=== PATIENT | female | born 1960 | race Caucasian/White ===

== ENCOUNTER 2016-02-18 10:06 | Outpatient (RCR) | payer BC ==
[~2016-02-18] VITALS: Ht 165.1 cm; Wt 112.5 kg
[~2016-02-18 10:06] MED LIST: ALPR0.5T PO; ALPR1TAB7 PO; ASCO-262 PO; ASPI-983 PO; COLE1TAB PO; CYCL10TA9 PO; DICL100G18 TP; ESTROGEN PATCH; FURO40TA4 PO; METF1000 PO; OLME20TA22 PO; PANT40TA3 PO; POTA10TA10 PO; POTA20TA15 PO; PRCD5U PO; PRED10TA PO; PROM25TA14 PO; PSYL1PAC10 PO; TRAM50TA2 PO
--- OUTSIDE RECORDS SUMMARY | 2016-02-18 10:09 | XMS REPORT | Continuity of Care Document ---
Author Author [facility] Organization [facility] Address Unknown Phone Unavailable Care Team Providers Care Molecular Pathologist Name Role Phone SHELDON RAPP DO PCP Insurance Providers Payer Name Policy Number Subscriber Name Relationship [facility] [id number] Suzette Chow 20 Self / Same As Patient Advance Directives Directive Response Recorded Date/Time Advance Directives No 02/14/14 5:29pm Organ Donor Yes 02/14/14 5:29pm Problems Medical Problems Problem Onset Date Status Bronchitis Unknown Active Medications Medication Dose Route Sig Days/Qty Instructions Order Date Discontinued Date Status Alprazolam 0.5 Mg PO NEEDED 02/14/14 Active [Estrogen Patch] WEEKLY 02/14/14 Active Promethazine/Codeine 5-10 Ml PO EVERY 6 HOURS PRN COUGH 120 Qty Active Prednisone 40 Mg PO DAILY 2 Days 02/14/14 Active Social History Social History Problem Response Recorded Date/Time Alcohol Use Denies Use 02/14/2014 5:29pm Recreational Drug Use No 02/14/2014 5:29pm Recent Foreign Travel No 04/16/2014 2:15pm Hospital Discharge Instructions No hospital discharge instructions. Plan of Care No plan of care. Functional Status No functional status results. Allergies, Adverse Reactions, Alerts Allergen Type Severity Reaction Status Last Updated No Allergy Information Available Active 12/28/13 Immunizations No immunization records. Vital Signs No known vital signs results. Results No known relevant diagnostic tests, laboratory data and/or discharge summary. Procedures No known history of procedures. Encounters Encounter Location Date/Time Discharged Recurring [facility] 04/23/14 10:19am
== END 2016-05-18 | disposition home or self-care (01) ==
LOC: DSME 10:06
PROVIDERS: ATTEND Internal Medicine
DX: E11.9 Type 2 diabetes mellitus without complications (principal); I10 Essential (primary) hypertension

== ENCOUNTER → 2017-03-21 | Outpatient (CLI) | payer BC ==
--- NOTE | 2017-03-21 15:59 | Diagnostic Imaging Report ---
INDICATION: Routine screening. COMPARISON: 02/18/2016 and 01/01/2015. TECHNIQUE: Screening digital mammography was performed bilaterally with a Computer Aided Detection (CAD) system. FINDINGS: Scattered fibroglandular densities are identified in both breasts. A biopsy clip in the outer left breast is again noted. No mass or malignant appearing microcalcifications are seen. The axillae are unremarkable. IMPRESSION: No mammographic features suspicious for malignancy are identified. ACR BI-RADS Category 2: Benign findings. Result letter will be mailed to the patient. Note: At least 10% of breast cancer is not imaged by mammography. Dictated by: Dictated on workstation # [id number]
== END ==
LOC: RAD 15:02
PROVIDERS: ATTEND Nurse Practitioner
DX: Z12.31 Encounter for screening mammogram for malignant neoplasm of breast (principal)
CPT/HCPCS: 77067

== ENCOUNTER 2017-10-25 16:02 | Emergency (ER) | payer BC ==
[~2017-10-25] VITALS: Ht 162.6 cm; Wt 98.4 kg
[~2017-10-25 16:02] MED LIST changes: +METF-399 PO; -METF1000 PO; +OLME20TA21 PO; -OLME20TA22 PO
[2017-10-25] MEDS ORDERED: ASPIRIN 325 MG (5 GR) TABLET PO ONE (16:15)
--- NOTE | 2017-10-25 16:17 | ED Chest Pain ---
General Stated Complaint: CP Source: patient Exam Limitations: no limitations History of Present Illness Date Seen by Provider: Oct 25, 2017 Time Seen by Provider: 16:12 Initial Comments Patient is a 57-year-old female who presents to the emergency room with complaints of substernal chest pain that radiates to her left shoulder that started 3 hours prior to arrival. She reports when the pain started she took two 81 mg aspirin. She reports the pain has not let up and she has developed lightheadedness, dizziness, and shortness of breath. She's has had a similar episode 2 years ago and has seen Dr. Kulkarni in the past. 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) Associated Symptoms: dizziness, shortness of breath Allergies and Home Medications Allergies Coded Allergies: sulfamethoxazole (Verified Allergy, Severe, 02/03/16) trimethoprim (Verified Allergy, Severe, 02/03/16) Home Medications Alprazolam 1 Mg Tablet, 1 MG PO HS, (Reported) Ascorbate Calcium 500 Mg Tablet, 500 MG PO BID, (Reported) Aspirin 81 Mg Tablet.dr, 81 MG PO HS, (Reported) Colestipol HCl 1 Gm Tablet, 1 GM PO HS, (Reported) Cyclobenzaprine HCl 10 Mg Tablet, 10 MG PO Q8H PRN for MUSCLE SPASMS, (Reported) Diclofenac Sodium 100 Gm Gel..gram., TP DAILY PRN PRN for PAIN, (Reported) Furosemide 40 Mg Tablet, 40 MG PO BID, (Reported) Metformin HCl 1,000 Mg Tablet, 1,000 MG PO BID, (Reported) Olmesartan Medoxomil 20 Mg Tablet, 20 MG PO DAILY, (Reported) Pantoprazole Sodium 40 Mg Tablet.dr, 40 MG PO DAILY, (Reported) Potassium Chloride 10 Meq Tablet.er, 10 MEQ PO BID, (Reported) Promethazine HCl 25 Mg Tablet, 25 MG PO Q8H PRN for NAUSEA/VOMITING, (Reported) Psyllium Husk (with Sugar) 3.4 Gm Powd.pack, 3.4 GM PO HS, (Reported) Tramadol HCl 50 Mg Tablet, 50-100 MG PO Q8H PRN for PAIN, (Reported) Patient Home Medication List Home Medication List Reviewed: Yes Review of Systems Review of Systems Constitutional: see HPI; No chills, No fever Respiratory: See HPI, Shortness of Air Cardiovascular: See HPI, Chest Pain, Lightheadedness All Other Systems Reviewed Negative Unless Noted: Yes Past Ahzqxpm-Lpuadf-Fkhttd Hx Past Med/Social Hx: Reviewed Nursing Past Med/Soc Hx Patient Social History Recent Foreign Travel: No Contact w/Someone Who Travel: No Recent Hopitalizations: No Immunizations Up To Date Tetanus Booster (TDap): More than 5yrs Date of Pneumonia Vaccine: June 22, 2015 Seasonal Allergies Seasonal Allergies: No Past Medical History Appendectomy, Gallbladder, Hysterectomy, Orthopedic, Tonsillectomy Sleep Apnea Currently Using CPAP: Yes High Cholesterol, Hypertension Reproductive Disorders: No 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 8.0oz. 115.650263ye; 41.26 BMI Method:Stated General Appearance: No Apparent Distress, WD/WN HEENT: PERRL/EOMI, TMs Normal, Normal ENT Inspection, Pharynx Normal Neck: Full Range of Motion, Normal Inspection, Non Tender Respiratory: Chest Non Tender, Lungs Clear, Normal Breath Sounds, No Accessory Muscle Use, No Respiratory Distress Cardiovascular: No Edema, No Gallop, No JVD, No Murmur, Normal Peripheral Pulses, Tachycardia Extremity: Normal Capillary Refill, Normal Inspection, Normal Range of Motion, Non Tender, No Calf Tenderness, No Pedal Edema Neurologic/Psychiatric: Alert, Oriented x3, Normal Mood/Affect Skin: Normal Color, Warm/Dry Progress/Results/Core Measures Results/Orders Lab Results Laboratory Tests Test 10/25/17 16:17 Range/Units White Blood Count 7.8 4.3-11.0 10^3/uL Red Blood Count 4.03 L 4.35-5.85 10^6/uL Hemoglobin 11.9 11.5-16.0 G/DL Hematocrit 35 35-52 % Mean Corpuscular Volume 87 80-99 FL Mean Corpuscular Hemoglobin 30 25-34 PG Mean Corpuscular Hemoglobin Concent 34 32-36 G/DL Red Cell Distribution Width 14.5 10.0-14.5 % Platelet Count 292 130-400 10^3/uL Mean Platelet Volume 9.7 7.4-10.4 FL Neutrophils (%) (Auto) 65 42-75 % Lymphocytes (%) (Auto) 24 12-44 % Monocytes (%) (Auto) 9 0-12 % Eosinophils (%) (Auto) 2 0-10 % Basophils (%) (Auto) 0 0-10 % Neutrophils # (Auto) 5.1 1.8-7.8 X 10^3 Lymphocytes # (Auto) 1.8 1.0-4.0 X 10^3 Monocytes # (Auto) 0.7 0.0-1.0 X 10^3 Eosinophils # (Auto) 0.1 0.0-0.3 10^3/uL Basophils # (Auto) 0.0 0.0-0.1 10^3/uL Prothrombin Time 11.8 L 12.2-14.7 SEC INR Comment 0.9 0.8-1.4 Activated Partial Thromboplast Time 24 24-35 SEC D-Dimer 0.33 0.00-0.49 UG/ML Sodium Level 140 135-145 MMOL/L Potassium Level 3.4 L 3.6-5.0 MMOL/L Chloride Level 103 98-107 MMOL/L Carbon Dioxide Level 27 21-32 MMOL/L Anion Gap 10 5-14 MMOL/L Blood Urea Nitrogen 14 7-18 MG/DL Creatinine 0.81 0.60-1.30 MG/DL Estimat Glomerular Filtration Rate > 60 BUN/Creatinine Ratio 17 Glucose Level 108 H 70-105 MG/DL Calcium Level 9.9 8.5-10.1 MG/DL Corrected Calcium 9.7 8.5-10.1 MG/DL Magnesium Level 2.0 1.8-2.4 MG/DL Total Bilirubin 0.8 0.1-1.0 MG/DL Aspartate Amino Transf (AST/SGOT) 20 5-34 U/L Alanine Aminotransferase (ALT/SGPT) 26 0-55 U/L Alkaline Phosphatase 76 40-136 U/L Myoglobin 22.4 10.0-92.0 NG/ML Troponin I < 0.30 <0.30 NG/ML B-Type Natriuretic Peptide 14.1 <100.0 PG/ML Total Protein 6.8 6.4-8.2 GM/DL Albumin 4.3 3.2-4.5 GM/DL Amylase Level 49 25-125 U/L Lipase 29 8-78 U/L My Orders Orders - NEHA GARCIAS Cbc With Automated Diff (10/25/17 16:10) Magnesium (10/25/17 16:10) Chest 1 View, Ap/Pa Only (10/25/17 16:10) Ekg Tracing (10/25/17 16:10) Cardiac Profile 1 (10/25/17 16:10) Comprehensive Metabolic Panel (10/25/17 16:10) Myoglobin Serum (10/25/17 16:10) Protime With Inr (10/25/17 16:10) Partial Thromboplastin Time (10/25/17 16:10) O2 (10/25/17 16:10) Monitor-Rhythm Ecg Trace Only (10/25/17 16:10) Aspirin Tablet (Aspirin Tablet) (10/25/17 16:15) Nitroglycerin 0.4 Mg Btl 25's (Nitrostat (10/25/17 16:15) Saline Lock/Iv-Start (10/25/17 16:10) Lipase (10/25/17 16:10) Amylase (10/25/17 16:10) BNP (10/25/17 16:10) Fibrin Degradation Products (10/25/17 16:10) Medications Given in ED Vital Signs/I&O 10/25/17 10/25/17 16:02 17:30 Temp 98.4 Pulse 96 104 Resp 18 18 B/P (MAP) 134/75 (94) 123/72 Pulse Ox 99 O2 Delivery Room Air Room Air Progress Progress Note : Time: 14:40 Progress Note The patient's pain went from a 9 down to a 3 after 2 nitroglycerin. I am holding off on her third nitroglycerin because her blood pressure was down into the low 100 systolic and to bottom her out. 1727: I went back in the patient's room she states her pain is completely resolved at this time. I informed her that I would like to admit her to the hospital for chest pain rule out that she can see a trader and have more blood work done. She states that she has a at home who has dementia and that she cannot stay in the hospital. I informed like to admit her to the hospital and if she does not think she will be signing out AGAINST MEDICAL ADVICE. She agrees to this I informed her of the benefits of staying in the risks of going home. She is still adamant that she will not be staying in the hospital. EKG : EKG Time: 16:03 Rate: 110 Rhythm: S.Tach Intervals: Normal ECG Comparisson: No Previous ECG Available ECG Impression: Normal Comment Review by Dr. Waterman and he agrees with above. Diagnostic Imaging Diagonstic Imaging: Xray Plain Films/CT/US/NM/MRI: chest Comments NAME: SUZETTE CHOW [facility] REC#: [id number] PHYSICIAN: NEHA GARCIAS CC: NEHA GARCIAS; MILA GRIER MD Page 1 of 1 RADIOLOGY REPORT VIA [place], [place] CC: NEHA GARCIAS; MILA GRIER MD Page 1 of 1 RADIOLOGY REPORT NAME: SUZETTE CHOW [facility] REC#: [id number] PT STATUS: DEP ER : 1960 PHYSICIAN: NEHA GARCIAS ADMIT DATE: 10/25/17/ER Signed Date of Exam: 10/25/17 CHEST 1 VIEW, AP/PA ONLY INDICATION: Chest pain. TIME OF EXAM: 04:33 p.m. Correlation is made with prior study from 02/05/2016. FINDINGS: Heart size is stable. The lungs are clear. No infiltrate or failure is identified. No effusion or pneumothorax is seen. There are postsurgical changes in the lower cervical spine. IMPRESSION: No acute cardiopulmonary process is detected. Dictated by: Dictated on workstation # [id number] Dict: 10/25/17 1649 Trans: 10/25/171911 Interpreted by: MILA GRIER MD Electronically signed by: MILA GRIER MD 10/25/171911 Reviewed: Reviewed by Me Departure Impression Primary Impression: Chest pain Additional Impression: Left against medical advice Disposition: 01 HOME, SELF-CARE Condition: Against Medical Advice Departure-Patient Inst. Decision time for Depature: 17:29 Referrals: KRISTEN PAREDES DO (PCP/Family) Primary Care Physician Patient Instructions: Chest Pain (DC) Add. Discharge Instructions: Follow-up with your trader tomorrow. Call first thing in the morning. Follow-up with your primary care provider tomorrow. Call first thing tomorrow morning. I believe you need to be admitted to the hospital. Return back to the emergency room for any chest pain, shortness of breath, worsening symptoms, or any other concerns as needed. NEHA GARCIAS Oct 25, 2017 16:17
[2017-10-25] MEDS: NITROGLYCERIN 0.4 MG SL TABS BTL 25'S SL PRN ×2 (16:22→16:29)
[2017-10-25 16:27] LABS: BASOPHILS % (AUTO) 0 % (0-10); EOSINOPHILS # (AUTO) 0.1 10^3/uL (0.0-0.3); EOSINOPHILS % (AUTO) 2 % (0-10); HEMATOCRIT 35 % (35-52); HEMOGLOBIN 11.9 G/DL (11.5-16.0); LYMPHOCYTES # (AUTO) 1.8 X 10^3 (1.0-4.0); LYMPHOCYTES % (AUTO) 24 % (12-44); MEAN CORPUSCULAR HEMOGLOBIN 30 PG (25-34); MEAN CORPUSCULAR HGB CONC 34 G/DL (32-36); MEAN CORPUSCULAR VOLUME 87 FL (80-99); MEAN PLATELET VOLUME 9.7 FL (7.4-10.4); MONOCYTES # (AUTO) 0.7 X 10^3 (0.0-1.0); MONOCYTES % (AUTO) 9 % (0-12); NEUTROPHILS # (AUTO) 5.1 X 10^3 (1.8-7.8); NEUTROPHILS % (AUTO) 65 % (42-75); PLATELET COUNT 292 10^3/uL (130-400); RED BLOOD COUNT 4.03 10^6/uL (4.35-5.85); RED CELL DISTRIBUTION WIDTH 14.5 % (10.0-14.5); WHITE BLOOD COUNT 7.8 10^3/uL (4.3-11.0)
[2017-10-25 16:41] LABS: INR 0.9 (0.8-1.4); PROTHROMBIN TIME PATIENT 11.8 SEC (12.2-14.7)
[2017-10-25 16:50] LABS: ALANINE AMINOTRANSFERASE 26 U/L (0-55); ALBUMIN 4.3 GM/DL (3.2-4.5); ALKALINE PHOSPHATASE 76 U/L (40-136); AMYLASE 49 U/L (25-125); BILIRUBIN,TOTAL 0.8 MG/DL (0.1-1.0); BUN/CREATININE RATIO 17; CALCIUM 9.9 MG/DL (8.5-10.1); CARBON DIOXIDE 27 MMOL/L (21-32); CHLORIDE 103 MMOL/L (98-107); CREATININE SERUM 0.81 MG/DL (0.60-1.30); GFR ESTIMATED > 60; GLUCOSE 108 MG/DL (70-105); LIPASE 29 U/L (8-78); POTASSIUM 3.4 MMOL/L (3.6-5.0); SODIUM 140 MMOL/L (135-145); TOTAL PROTEIN 6.8 GM/DL (6.4-8.2)
--- NOTE | 2017-10-25 16:53 | Diagnostic Imaging Report ---
INDICATION: Chest pain. TIME OF EXAM: 04:33 p.m. Correlation is made with prior study from 02/05/2016. FINDINGS: Heart size is stable. The lungs are clear. No infiltrate or failure is identified. No effusion or pneumothorax is seen. There are postsurgical changes in the lower cervical spine. IMPRESSION: No acute cardiopulmonary process is detected. Dictated by: Dictated on workstation # [id number]
[2017-10-25 16:56] LABS: MYOGLOBIN SERUM 22.4 NG/ML (10.0-92.0)
[2017-10-25 17:30] VITALS: BP 123/72
== END 2017-10-25 17:30 | disposition left against medical advice (07) ==
LOC: EDUNIT# 16:02 → ER 16:03
DX: R07.81 Pleurodynia (principal); G47.30 Sleep apnea, unspecified; E78.00 Pure hypercholesterolemia, unspecified; I10 Essential (primary) hypertension; E11.9 Type 2 diabetes mellitus without complications; Z87.442 Personal history of urinary calculi; Z88.2 Allergy status to sulfonamides; Z88.8 Allergy status to other drugs, medicaments and biological substances; Z79.82 Long term (current) use of aspirin; Z79.84 Long term (current) use of oral hypoglycemic drugs; Z90.710 Acquired absence of both cervix and uterus; Z90.89 Acquired absence of other organs
CPT/HCPCS: 36415; 71045; 80053; 82150; 83690; 83735; 83874; 83880; 84484; 85025; 85379; 85610; 85730; 93005; 93041

== ENCOUNTER → 2018-04-21 | Outpatient (CLI) | payer BC ==
[2018-04-21 23:11] LABS: BASOPHILS % (AUTO) 0 % (0-10); EOSINOPHILS # (AUTO) 0.2 10^3/uL (0.0-0.3); EOSINOPHILS % (AUTO) 2 % (0-10); HEMATOCRIT 35 % (35-52); HEMOGLOBIN 11.8 G/DL (11.5-16.0); LYMPHOCYTES % (AUTO) 43 % (12-44); MEAN CORPUSCULAR HEMOGLOBIN 29 PG (25-34); MEAN CORPUSCULAR HGB CONC 34 G/DL (32-36); MEAN CORPUSCULAR VOLUME 87 FL (80-99); MEAN PLATELET VOLUME 9.6 FL (7.4-10.4); MONOCYTES # (AUTO) 0.5 X 10^3 (0.0-1.0); MONOCYTES % (AUTO) 7 % (0-12); NEUTROPHILS # (AUTO) 3.4 X 10^3 (1.8-7.8); NEUTROPHILS % (AUTO) 48 % (42-75); PLATELET COUNT 317 10^3/uL (130-400); RED CELL DISTRIBUTION WIDTH 14.9 % (10.0-14.5)
[2018-04-21 23:29] LABS: ALANINE AMINOTRANSFERASE 27 U/L (0-55); ALBUMIN 4.6 GM/DL (3.2-4.5); ALKALINE PHOSPHATASE 78 U/L (40-136); BILIRUBIN,TOTAL 0.5 MG/DL (0.1-1.0); BUN/CREATININE RATIO 18; CALCIUM 10.4 MG/DL (8.5-10.1); CARBON DIOXIDE 25 MMOL/L (21-32); CHLORIDE 105 MMOL/L (98-107); CREATININE SERUM 1.06 MG/DL (0.60-1.30); GFR ESTIMATED 54; GLUCOSE 129 MG/DL (70-105); POTASSIUM 3.4 MMOL/L (3.6-5.0); SODIUM 143 MMOL/L (135-145); TOTAL PROTEIN 7.1 GM/DL (6.4-8.2)
== END ==
LOC: LAB 22:50
PROVIDERS: ATTEND Nurse Practitioner Family
DX: R43.9 Unspecified disturbances of smell and taste (principal)
CPT/HCPCS: 36415; 80053; 85025

== ENCOUNTER 2018-05-30 10:56 | Emergency (ER) | payer BC ==
[~2018-05-30] VITALS: Ht 162.6 cm; Wt 98.7 kg
[2018-05-30 11:15] LABS: BASOPHILS % (AUTO) 1 % (0-10); EOSINOPHILS # (AUTO) 0.1 10^3/uL (0.0-0.3); EOSINOPHILS % (AUTO) 2 % (0-10); HEMATOCRIT 38 % (35-52); HEMOGLOBIN 12.9 G/DL (11.5-16.0); LYMPHOCYTES # (AUTO) 2.2 X 10^3 (1.0-4.0); LYMPHOCYTES % (AUTO) 33 % (12-44); MEAN CORPUSCULAR HEMOGLOBIN 29 PG (25-34); MEAN CORPUSCULAR HGB CONC 34 G/DL (32-36); MEAN CORPUSCULAR VOLUME 87 FL (80-99); MEAN PLATELET VOLUME 9.9 FL (7.4-10.4); MONOCYTES # (AUTO) 0.5 X 10^3 (0.0-1.0); MONOCYTES % (AUTO) 8 % (0-12); NEUTROPHILS # (AUTO) 3.8 X 10^3 (1.8-7.8); NEUTROPHILS % (AUTO) 57 % (42-75); PLATELET COUNT 333 10^3/uL (130-400); RED CELL DISTRIBUTION WIDTH 14.7 % (10.0-14.5); WHITE BLOOD COUNT 6.6 10^3/uL (4.3-11.0)
[2018-05-30] MEDS ORDERED: NS IV 1000 ML 1,000 ML ONE (11:30)
--- NOTE | 2018-05-30 11:32 | ED Neurological Problem ---
General Chief Complaint: Neuro-Stroke Like Symptoms Stated Complaint: FACIAL NUMBESS IN FACE,TINGLING IN ARM Nursing Triage Note: PT AMB TO RM 3 WITH COMPLAINT OF LEFT SIDED FACIAL, TONGUE AND EAR NUMBNESS. 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 PT STATES SHE HAS BEEN HAVING RIGHT SIDED FLANK PAIN AND HAS APPT WITH DOC TODAY. Nursing Sepsis Screen: No Definite Risk Source: patient Exam Limitations: no limitations History of Present Illness Date Seen by Provider: May 30, 2018 Time Seen by Provider: 10:58 Initial Comments Here with report of left-sided facial numbness and left arm numbness that started approximately 30 minutes prior to arrival. She states that she hasn't been feeling good recently and has right flank pain that she was given a follow- up with her Dr. today at 5:30. Denies dysuria, diarrhea or vomiting. Overall just does not feel well. The facial numbness scared her and prompted her to talk to her boss who then brought her straight over to the emergency department for evaluation because of worsening of symptoms. Timing/Duration: 1/2 hour Severity: moderate Associated Symptoms: No confusion, No fever/chills, No loss of consciousness, No nausea/vomiting; paresthesia; No slurred speech, No trouble walking, No vision changes, No weakness Allergies and Home Medications Allergies Coded Allergies: sulfamethoxazole (Verified Allergy, Severe, 02/03/16) trimethoprim (Verified Allergy, Severe, 02/03/16) Home Medications Alprazolam 1 Mg Tablet, 1 MG PO HS, (Reported) Ascorbate Calcium 500 Mg Tablet, 500 MG PO BID, (Reported) Aspirin 81 Mg Tablet.dr, 81 MG PO HS, (Reported) Colestipol HCl 1 Gm Tablet, 1 GM PO HS, (Reported) Cyclobenzaprine HCl 10 Mg Tablet, 10 MG PO Q8H PRN for MUSCLE SPASMS, (Reported) Diclofenac Sodium 100 Gm Gel..gram., TP DAILY PRN PRN for PAIN, (Reported) Furosemide 40 Mg Tablet, 40 MG PO BID, (Reported) Metformin HCl 1,000 Mg Tablet, 1,000 MG PO BID, (Reported) Olmesartan Medoxomil 20 Mg Tablet, 20 MG PO DAILY, (Reported) Pantoprazole Sodium 40 Mg Tablet.dr, 40 MG PO DAILY, (Reported) Potassium Chloride 10 Meq Tablet.er, 10 MEQ PO BID, (Reported) Promethazine HCl 25 Mg Tablet, 25 MG PO Q8H PRN for NAUSEA/VOMITING, (Reported) Psyllium Husk (with Sugar) 3.4 Gm Powd.pack, 3.4 GM PO HS, (Reported) Tramadol HCl 50 Mg Tablet, 50-100 MG PO Q8H PRN for PAIN, (Reported) Patient Home Medication List Home Medication List Reviewed: Yes Review of Systems Review of Systems Constitutional: see HPI; No chills, No fever, No weakness Eyes: No Symptoms Reported Ears, Nose, Mouth, Throat: see HPI; denies nose discharge, denies mouth swelling Respiratory: No short of breath, No wheezing Cardiovascular: no symptoms reported Gastrointestinal: abdominal pain (Right flank); No nausea, No vomiting Genitourinary: dysuria, pain Musculoskeletal: back pain; No muscle pain Skin: no symptoms reported Psychiatric/Neurological: See HPI, Anxiety, Tingling Endocrine: No Symptoms Reported All Other Systems Reviewed Negative Unless Noted: Yes Past Nrodyvc-Lqwxxl-Lsvbqi Hx Past Med/Social Hx: Reviewed Nursing Past Med/Soc Hx Patient Social History Alcohol Use: Denies Use Recreational Drug Use: No Smoking Status: Never a Smoker Recent Foreign Travel: No Contact w/Someone Who Travel: No Recent Infectious Disease Expo: No Recent Hopitalizations: No Immunizations Up To Date Tetanus Booster (TDap): More than 5yrs Date of Pneumonia Vaccine: June 22, 2015 Seasonal Allergies Seasonal Allergies: No Past Medical History Surgeries: Yes (CERVICAL NECK SURGERY 2014, BUNION REMOVED,) Appendectomy, Gallbladder, Hysterectomy, Orthopedic, Tonsillectomy Respiratory: No Sleep Apnea Currently Using CPAP: Yes Cardiac: Yes High Cholesterol, Hypertension Neurological: No 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 8.0oz. 98.243297ag; 41.26 BMI Method:Stated General Appearance: WD/WN, no apparent distress HEENT: PERRL/EOMI, pharynx normal Neck: full range of motion, supple Respiratory: lungs clear, normal breath sounds Cardiovascular: no murmur, tachycardia Peripheral Pulses: 2+ Dorsalis Pedis (R), 2+ Left Dors-Pedis (L), 2+ Radial Pulses (R), 2+ Radial Pulses (L) Gastrointestinal: non tender, soft Back: normal inspection, CVA tenderness (R); No CVA tenderness (L), No vertebral tenderness Extremities: normal range of motion, non-tender, normal inspection, no pedal edema, no calf tenderness, normal capillary refill Neurologic/Psychiatric: alert, oriented x 3 Crainal Nerves: normal hearing, normal speech, PERRL Coordination/Gait: normal finger to nose, normal gait Motor/Sensory: no motor deficit, no sensory deficit, no pronator drift, other ( mild numbness to the left side of the face) Skin: normal color, warm/dry Stroke NIH Stroke Scale Assessment Level of Consciousness: 0=Alert (0), Level of Consciousness-Questions: 0= Answers both month/age (0), LOC Commands: 0=Performs both tasks (0), Visual Matthew: 0=No visual loss (0), Facial Movement (Facial Paresis): 0=Normal symmetrical mnt (0), Motor Function-Arms Right: 0=No drift (0), Motor Function- Arms Left: 0=No drift (0), Motor Function-Legs Right: 0=No drift (0), Motor Function-Legs Left: 0=No drift (0), Limb Ataxia: 0=Absent (0), Sensory: 1=Mild to Moderate loss (1), Best Language: 0=No aphasia (0), Dysarthria: 0=Normal (0) , Extinction & Inattention: 0=No abnormality (0), Total: Focused Exam Lactate Level 05/30/18 11:05: Lactic Acid Level 2.60*H 05/30/18 13:15: Lactic Acid Level 1.75 Lactic Acid Level Laboratory Tests Test 05/30/18 11:05 05/30/18 13:15 Lactic Acid Level 2.60 MMOL/L (0.50-2.00) *H 1.75 MMOL/L (0.50-2.00) Progress/Results/Core Measures Results/Orders Lab Results Laboratory Tests Test 05/30/18 11:04 05/30/18 11:05 05/30/18 11:44 05/30/18 13:15 Range/Units Glucometer 121 H 70-110 MG/DL White Blood Count 6.6 4.3-11.0 10^3/uL Red Blood Count 4.41 4.35-5.85 10^6/uL Hemoglobin 12.9 11.5-16.0 G/DL Hematocrit 38 35-52 % Mean Corpuscular Volume 87 80-99 FL Mean Corpuscular Hemoglobin 29 25-34 PG Mean Corpuscular Hemoglobin Concent 34 32-36 G/DL Red Cell Distribution Width 14.7 H 10.0-14.5 % Platelet Count 333 130-400 10^3/uL Mean Platelet Volume 9.9 7.4-10.4 FL Neutrophils (%) (Auto) 57 42-75 % Lymphocytes (%) (Auto) 33 12-44 % Monocytes (%) (Auto) 8 0-12 % Eosinophils (%) (Auto) 2 0-10 % Basophils (%) (Auto) 1 0-10 % Neutrophils # (Auto) 3.8 1.8-7.8 X 10^3 Lymphocytes # (Auto) 2.2 1.0-4.0 X 10^3 Monocytes # (Auto) 0.5 0.0-1.0 X 10^3 Eosinophils # (Auto) 0.1 0.0-0.3 10^3/uL Basophils # (Auto) 0.0 0.0-0.1 10^3/uL Prothrombin Time 11.9 L 12.2-14.7 SEC INR Comment 0.9 0.8-1.4 Activated Partial Thromboplast Time 27 24-35 SEC D-Dimer 0.54 H 0.00-0.49 UG/ML Sodium Level 142 135-145 MMOL/L Potassium Level 3.5 L 3.6-5.0 MMOL/L Chloride Level 105 98-107 MMOL/L Carbon Dioxide Level 24 21-32 MMOL/L Anion Gap 13 5-14 MMOL/L Blood Urea Nitrogen 16 7-18 MG/DL Creatinine 1.01 0.60-1.30 MG/DL Estimat Glomerular Filtration Rate 57 BUN/Creatinine Ratio 16 Glucose Level 119 H 70-105 MG/DL Lactic Acid Level 2.60 *H 1.75 0.50-2.00 MMOL/L Calcium Level 10.5 H 8.5-10.1 MG/DL Corrected Calcium 8.5-10.1 MG/DL Total Bilirubin 1.0 0.1-1.0 MG/DL Aspartate Amino Transf (AST/SGOT) 33 5-34 U/L Alanine Aminotransferase (ALT/SGPT) 37 0-55 U/L Alkaline Phosphatase 92 40-136 U/L Troponin I < 0.028 <0.028 NG/ML Total Protein 7.6 6.4-8.2 GM/DL Albumin 4.7 H 3.2-4.5 GM/DL Thyroid Stimulating Hormone (TSH) 0.84 0.35-4.94 UIU/ML Urine Color YELLOW Urine Clarity CLEAR Urine pH 6.5 5-9 Urine Specific Nash 1.010 L 1.016-1.022 Urine Protein NEGATIVE NEGATIVE Urine Glucose (UA) NEGATIVE NEGATIVE Urine Ketones NEGATIVE NEGATIVE Urine Nitrite NEGATIVE NEGATIVE Urine Bilirubin NEGATIVE NEGATIVE Urine Urobilinogen NORMAL NORMAL MG/DL Urine Leukocyte Esterase NEGATIVE NEGATIVE Urine RBC (Auto) NEGATIVE NEGATIVE Urine RBC NONE /HPF Urine WBC NONE /HPF Urine Squamous Epithelial Cells RARE /HPF Urine Crystals NONE /LPF Urine Bacteria NEGATIVE /HPF Urine Casts NONE /LPF Urine Mucus NEGATIVE /LPF Urine Culture Indicated NO My Orders Orders - ANGELO VILLA MD Cbc With Automated Diff (05/30/18 11:00) Protime With Inr (05/30/18 11:00) Partial Thromboplastin Time (05/30/18 11:00) Comprehensive Metabolic Panel (05/30/18 11:00) Fibrin Degradation Products (05/30/18 11:00) Troponin I (05/30/18 11:00) Ua Culture If Indicated (05/30/18 11:00) Chest 1 View, Ap/Pa Only (05/30/18 11:00) Ekg Tracing (05/30/18 11:00) Nothing By Mouth (05/30/18 Dinner) Accucheck Stat ONCE (05/30/18 11:00) Saline Lock/Iv-Start (05/30/18 11:00) Vital Signs Stroke Patient Q15M (05/30/18 11:00) Ct Head Wo-R/O Stroke (05/30/18 11:00) O2 (05/30/18 11:00) Intake & Output 06,14,22 (05/30/18 11:00) Monitor-Rhythm Ecg Trace Only (05/30/18 11:00) Dysphagia Screening Tool (05/30/18 11:00) Lipid Panel (05/31/18 06:00) Lactic Acid Analyzer (05/30/18 11:07) Blood Culture (05/30/18 11:07) I-Stat Bedside Testing (05/30/18 11:07) Ct Angio Head/Neck (05/30/18 11:09) Ns Iv 1000 Ml (Sodium Chloride 0.9%) (05/30/18 11:30) Ct Abdomen/Pelvis Wo (05/30/18 12:46) Thyroid Stimulating Hormone (05/30/18 14:00) Medications Given in ED Current Medications Medications Dose Ordered Sig/Tomasa Route Start Time Stop Time Status Last Admin Dose Admin Sodium Chloride 1,000 ml @ ud STK-MED ONCE .ROUTE 05/30/18 11:30 05/30/18 11:32 DC 05/30/18 11:34 1,000 MLS/HR Vital Signs/I&O 05/30/18 11:19 Temp 98.6 Pulse 101 Resp 20 B/P (MAP) 166/85 (112) Pulse Ox 100 O2 Delivery Room Air Blood Pressure Mean: 112 iStat Bedside Lab Testing Sodium (Na): 141.00 Potassium (K): 3.40 Chloride (CI): 103.00 TCO2: 25.00 Glucose (Glu): 124.00 Urea Nitrogen (BUN)/Urea: 15.00 Creatinine (Crea): 1.00 Anion Gap*: 18.00 FSBG Bedside Testing Finger Stick Blood Glucose: 121 Progress Progress Note : Progress Note Seen and evaluated. Stroke activation initiated due to the facial numbness and presenting symptoms. IV, labs, UA, EKG and chest x-ray ordered. CT head ordered. We will go ahead and get CT angiogram of the head and neck as well due to symptoms. Patient has a complicated presentation. She feels have a temperature and is normal so we will go ahead and get blood cultures and lactic acid. Due to right flank pain, patient may need further imaging. CT perfusion study not done and just angiogram done at this point due to very little low stroke scale. Does not seem to have disability otherwise. We will evaluate blood flow with CT angiogram and then progress as indicated. 1246: No acute findings. We will try to to further evaluate the right flank pain. CT abdomen and pelvis without contrast has been ordered. Lactic acid is elevated and we're unsure of the cause of that. Urine and chest x-ray do not show any acute abnormality patient is currently afebrile. Continue to monitor. Normal saline 1 L bolus has been ordered. 1400: We have added thyroid studies. Patient is doing much better and is walk to the bathroom without difficulty. 1525: CT abdomen and pelvis do not show any acute abnormality. There is a structure lateral to the right ureter that appears to be outside of the ureter and may be a phlebolith or similar type stone but not. She remains at her. I did discuss the case with Dr. Dr. Paredes. Dr. Paredes would like to see her in close follow-up on afternoon. This was discussed with patient and family who agree. Patient will call for appointment. Discharged home with return precautions. Patient verbalize understanding instructions and agreement with plan. Initial ECG Impression Date: May 30, 2018 Initial ECG Impression Time: 10:58 Initial ECG Rate: 98 Initial ECG Rhythm: Normal Sinus Comment Sinus rhythm with normal axis. Noted some ST elevation AR. Similar to previous but slower rate from 10/25/17. Interpreted by me. Diagnostic Imaging Diagonstic Imaging: Xray Plain Films/CT/US/NM/MRI: chest Comments [facility] [place], [place] NAME: SUZETTE CHOW [facility] REC#: [id number] PT STATUS: REG ER : 1960 PHYSICIAN: ANGELO VILLA MD ADMIT DATE: 05/30/18/ER Draft Date of Exam:05/30/18 CHEST 1 VIEW, AP/PA ONLY Portable erect AP chest at 1157 hours. INDICATION: Left-sided facial numbness. FINDINGS: There is shallow inspiration when compared to the prior exam of 10/25/2017. Allowing for this technical factor, the heart is stable and within normal limits. The lungs remain clear. There is still no sign of failure, pneumonia or pleural effusion. Mediastinum is not widened. The osseous structures are intact. The orthopedic hardware overlying the lower cervical spine seen previously is again evident and no different. IMPRESSION: There is no evidence for an acute cardiopulmonary abnormality. Dictated on workstation # [id number] Dict: 05/30/18 1228 Trans: 05/30/18 1232 [id number] Interpreted by: SERAFIN YOUNGBLOOD MD Electronically signed by: Donnanstic Imaging: CT Plain Films/CT/US/NM/MRI: head Comments [facility] [place] [place] NAME: SUZETTE CHOW [facility] REC#: [id number] PT STATUS: REG ER : 1960 PHYSICIAN: ANGELO VILLA MD ADMIT DATE: 05/30/18/ER Draft Date of Exam:05/30/18 CT HEAD WO-R/O STROKE PROCEDURE: CT head wo r/o stroke. TECHNIQUE: Multiple contiguous axial images were obtained through the brain without the use of intravenous contrast. Auto Exposure Controls were utilized during the CT exam to meet ALARA standards for radiation dose reduction. INDICATION: Numbness to left side of tongue, face and lips. There are no prior studies available for comparison. There is no mass, shift of midline or hemorrhage to suggest an acute intracranial abnormality. There is no evidence for an asymmetric hyperdense vessel. The ventricles are not normally dilated. The bone window shows no sign for a fracture or for a destructive lesion. The orbits are symmetrical and within normal limits. The sinuses are generally clear. IMPRESSION: 1. There is no evidence for an acute intracranial abnormality. 2. If clinical concern regarding an underlying abnormality persists, then MRI would be recommended for further study. 3. These results were discussed with Dr. Villa in the ER. Dictated on workstation # [id number] Dict: 05/30/18 1128 Trans: 05/30/18 1134 [facility] [id number] Interpreted by: SERAFIN YOUNGBLOOD MD Electronically signed by: Kandynstic Imaging: CT Plain Films/CT/US/NM/MRI: head, other Comments NAME: SUZETTE CHOW [facility] REC#: [id number] PT STATUS: REG ER : 1960 PHYSICIAN: ANGELO VILLA MD ADMIT DATE: 05/30/18/ER Signed Date of Exam: 05/30/18 CT ANGIO HEAD/NECK CLINICAL INDICATION: Patient with stroke-like symptoms and numbness to left side of tongue, face, lips for 30 minutes. EXAMS: 1: Head CT with IV contrast. 2: CT angiogram of the head and neck performed with 100 cc of Omnipaque 350 IV contrast. Sagittal and coronal MIP reformations were created for better visualization of vascular anatomy. COMPARISON: Head CT without contrast dated 05/30/2018. FINDINGS: Head CT: There is no evidence of acute cerebral infarct, intracranial hemorrhage, or gross mass effect. There is no abnormal IV contrast enhancement. The brain parenchymal volume appears appropriate for patient's age. There is normal seay-white matter distinction. There is no significant midline shift or herniation. There is no evidence of hydrocephalus. The basal cisterns are unremarkable. The skull, extracranial soft tissue, and orbits are unremarkable. The paranasal sinuses are unremarkable. Temporal bones show no significant abnormality. CT angiogram: There is dense contrast bolus within the left subclavian vein, left innominate vein, superior vena cava which causes streak artifact obscuring portion of the aortic arch and proximal great vessels. Four-vessel aortic arch is seen with the cervical left vertebral artery arising from the aortic arch. The mid and distal left subclavian artery is obscured by dense contrast bolus streak artifact. Otherwise, the remainder of the visualized portion of left subclavian artery is patent. The bilateral CCA, bilateral cervical ICA, and bilateral ECA are patent. Tortuous mid and distal cervical internal carotid arteries are noted. Slightly dominant cervical right vertebral artery is seen. The bilateral cervical vertebral arteries are patent as visualized. Dental streak artifact obscuring portions of the neck vascular structures at the C2 vertebral body level. The intradural bilateral vertebral arteries, basilar artery, bilateral superior cerebellar arteries, and bilateral SPECIAL TESTER are patent. The petrous and cavernous carotid artery portions of the bilateral carotids are patent. The bilateral A1 ACAs, anterior communicating artery, and A2 ACAs and their distal branches are patent. The bilateral MCAs and their distal branches are patent. There is no evidence of aneurysm, vascular malformation, or dissection. There is no significant vascular stenosis seen on this exam. The visualized upper lung matthew show mild atelectasis. The neck soft tissue structures are unremarkable. There is cervical spine degenerative disease with vertebral body spurs and facet arthropathy. C6-C7 anterior cervical disc fusion hardware is noted. IMPRESSION: 1: Unremarkable CT scan of the brain. 2: CT angiogram of the [place] and neck is unremarkable with no significant vascular stenosis, vascular malformation, aneurysm, or dissection. Results of this report were discussed with Dr. Angelo Villa via the telephone on 05/30/2018 at 1150 hrs. Dictated by: Dictated on workstation # [id number] Dict: 05/30/18 1137 Trans: 05/30/18 1224 Interpreted by: MORENA BOWMAN MD Electronically signed by: MORENA BOWMAN MD 05/30/18 1224 Diagonstic Imaging: CT Plain Films/CT/US/NM/MRI: abdomen, pelvis Comments [facility]. [place], [place] NAME: SUZETTE CHOW [facility] REC#: [id number] PT STATUS: REG ER : 1960 PHYSICIAN: ANGELO VILLA MD ADMIT DATE: 05/30/18/ER Draft Date of Exam:05/30/18 CT ABDOMEN/PELVIS WO PROCEDURE: CT abdomen and pelvis without contrast. TECHNIQUE: Multiple contiguous axial images were obtained through the abdomen and pelvis without the use of intravenous contrast. Auto Exposure Controls were utilized during the CT exam to meet ALARA standards for radiation dose reduction. INDICATION: Back pain, history of kidney stones. COMPARISON: There are no prior CT abdomen/pelvis exams available for comparison. FINDINGS: There is no evidence for nephrolithiasis although the renal collecting systems are partially opacified due to the contrast used for the CTA head and neck exam performed prior to this study. Both kidneys do show excretion of contrast; however, there does appear to be a 6.5 mm calculus along the expected path of the right ureter at the level of L4. This calcification may be extraneous to the ureter as there is no dilatation of the ureter above or below this calcific density. There is no evidence for obstruction of the left collecting system either. There is no sign of a solid renal mass. The liver is of lower density than usually seen. This does suggest fatty metamorphosis. The gallbladder is surgically absent. The spleen, pancreas, adrenals, aorta, and inferior vena cava show no sign of an acute abnormality. The stomach is not well-distended and consequently difficult to assess. There is no pelvic mass or free fluid collection noted. The urinary bladder is only partially distended and consequently difficult to assess. The uterus is surgically absent. The appendix is not well-visualized. There is no indirect evidence for appendicitis. The bone windows show no sign of a fracture or of a destructive lesion. The lung bases are clear. IMPRESSION: 1. There is no evidence for obstruction of either collecting system. The 6.5 mm calcification along the path of the right ureter may well be extraneous to the ureter. 2. There is no acute abnormality of the abdomen or pelvis otherwise. 3. The uterus and gallbladder are surgically absent. 4. These results will be discussed with Dr. Villa in the ER. Dictated on workstation # [id number] Dict: 05/30/18 1402 Trans: 05/30/18 1419 [id number] Interpreted by: SERAFIN YOUNGBLOOD MD Electronically signed by: Departure Impression Primary Impression: Numbness and tingling of left side of face Additional Impression: Right flank pain Disposition: HOME, SELF-CARE Condition: Improved Departure-Patient Inst. Decision time for Depature: 15:34 Referrals: KRISTEN PAREDES DO (PCP/Family) Primary Care Physician Patient Instructions: Transient Ischemic Attack (DC), Flank Pain (DC), Paresthesias (DC) Add. Discharge Instructions: All discharge instructions reviewed with patient and/or family. Voiced understanding. You may take ibuprofen 600 mg every 8 hours as needed for pain. Follow-up with your doctor on for recheck and further evaluation. Call her office for appointment for her directions. Return for worse pain, swelling, weakness, breathing problems, facial droop, speech problems, problems with walking or balance or other concerns as needed. Continue other home medications as previously prescribed. Copy Copies To 1: KRISTEN PAREDES TIMOTHY D MD May 30, 2018 11:32
[2018-05-30 11:33] LABS: FIBRIN DEGRADATION PRODUCTS 0.54 UG/ML (0.00-0.49); INR 0.9 (0.8-1.4); PROTHROMBIN TIME PATIENT 11.9 SEC (12.2-14.7)
--- NOTE | 2018-05-30 11:35 | Diagnostic Imaging Report ---
PROCEDURE: CT head wo r/o stroke. TECHNIQUE: Multiple contiguous axial images were obtained through the brain without the use of intravenous contrast. Auto Exposure Controls were utilized during the CT exam to meet ALARA standards for radiation dose reduction. INDICATION: Numbness to left side of tongue, face and lips. There are no prior studies available for comparison. There is no mass, shift of midline or hemorrhage to suggest an acute intracranial abnormality. There is no evidence for an asymmetric hyperdense vessel. The ventricles are not normally dilated. The bone window shows no sign for a fracture or for a destructive lesion. The orbits are symmetrical and within normal limits. The sinuses are generally clear. IMPRESSION: 1. There is no evidence for an acute intracranial abnormality. 2. If clinical concern regarding an underlying abnormality persists, then MRI would be recommended for further study. 3. These results were discussed with Dr. Dodge in the ER. Dictated by: Dictated on workstation # [id number]
[2018-05-30 11:36] LABS: ALANINE AMINOTRANSFERASE 37 U/L (0-55); ALBUMIN 4.7 GM/DL (3.2-4.5); ALKALINE PHOSPHATASE 92 U/L (40-136); BUN/CREATININE RATIO 16; CALCIUM 10.5 MG/DL (8.5-10.1); CARBON DIOXIDE 24 MMOL/L (21-32); CHLORIDE 105 MMOL/L (98-107); CREATININE SERUM 1.01 MG/DL (0.60-1.30); GFR ESTIMATED 57; GLUCOSE 119 MG/DL (70-105); POTASSIUM 3.5 MMOL/L (3.6-5.0); SODIUM 142 MMOL/L (135-145); TOTAL PROTEIN 7.6 GM/DL (6.4-8.2)
--- NOTE | 2018-05-30 11:56 | Diagnostic Imaging Report ---
CLINICAL INDICATION: Patient with stroke-like symptoms and numbness to left side of tongue, face, lips for 30 minutes. EXAMS: 1: Head CT with IV contrast. 2: CT angiogram of the head and neck performed with 100 cc of Omnipaque 350 IV contrast. Sagittal and coronal MIP reformations were created for better visualization of vascular anatomy. COMPARISON: Head CT without contrast dated 05/30/2018. FINDINGS: Head CT: There is no evidence of acute cerebral infarct, intracranial hemorrhage, or gross mass effect. There is no abnormal IV contrast enhancement. The brain parenchymal volume appears appropriate for patient's age. There is normal seay-white matter distinction. There is no significant midline shift or herniation. There is no evidence of hydrocephalus. The basal cisterns are unremarkable. The skull, extracranial soft tissue, and orbits are unremarkable. The paranasal sinuses are unremarkable. Temporal bones show no significant abnormality. CT angiogram: There is dense contrast bolus within the left subclavian vein, left innominate vein, superior vena cava which causes streak artifact obscuring portion of the aortic arch and proximal great vessels. Four-vessel aortic arch is seen with the cervical left vertebral artery arising from the aortic arch. The mid and distal left subclavian artery is obscured by dense contrast bolus streak artifact. Otherwise, the remainder of the visualized portion of left subclavian artery is patent. The bilateral CCA, bilateral cervical ICA, and bilateral ECA are patent. Tortuous mid and distal cervical internal carotid arteries are noted. Slightly dominant cervical right vertebral artery is seen. The bilateral cervical vertebral arteries are patent as visualized. Dental streak artifact obscuring portions of the neck vascular structures at the C2 vertebral body level. The intradural bilateral vertebral arteries, basilar artery, bilateral superior cerebellar arteries, and bilateral [employer]CE HELPER are patent. The petrous and cavernous carotid artery portions of the bilateral carotids are patent. The bilateral A1 ACAs, anterior communicating artery, and A2 ACAs and their distal branches are patent. The bilateral MCAs and their distal branches are patent. There is no evidence of aneurysm, vascular malformation, or dissection. There is no significant vascular stenosis seen on this exam. The visualized upper lung cooley show mild atelectasis. The neck soft tissue structures are unremarkable. There is cervical spine degenerative disease with vertebral body spurs and facet arthropathy. C6-C7 anterior cervical disc fusion hardware is noted. IMPRESSION: 1: Unremarkable CT scan of the brain. 2: CT angiogram of the [place] and neck is unremarkable with no significant vascular stenosis, vascular malformation, aneurysm, or dissection. Results of this report were discussed with Dr. Angelo Dodge via the telephone on 05/30/2018 at 1150 hrs. Dictated by: Dictated on workstation # [id number]
[2018-05-30 11:59] LABS: BILIRUBIN,URINE NEGATIVE (NEGATIVE); CLARITY,URINE CLEAR; COLOR,URINE YELLOW; GLUCOSE, URINE (UA) NEGATIVE (NEGATIVE); KETONES,URINE NEGATIVE (NEGATIVE); LEUKOCYTE ESTERASE ,URINE NEGATIVE (NEGATIVE); NITRITE,URINE NEGATIVE (NEGATIVE); PH,URINE 6.5 (5-9); PROTEIN,URINE NEGATIVE (NEGATIVE); UROBILINOGEN,URINE NORMAL (NORMAL)
[2018-05-30 12:07] LABS: BACTERIA,URINE NEGATIVE /HPF; SQUAMOUS EPITHELIAL CELL,UR RARE /HPF
--- NOTE | 2018-05-30 12:32 | Diagnostic Imaging Report ---
Portable erect AP chest at 1157 hours. INDICATION: Left-sided facial numbness. FINDINGS: There is shallow inspiration when compared to the prior exam of 10/25/2017. Allowing for this technical factor, the heart is stable and within normal limits. The lungs remain clear. There is still no sign of failure, pneumonia or pleural effusion. Mediastinum is not widened. The osseous structures are intact. The orthopedic hardware overlying the lower cervical spine seen previously is again evident and no different. IMPRESSION: There is no evidence for an acute cardiopulmonary abnormality. Dictated by: Dictated on workstation # [id number]
--- NOTE | 2018-05-30 14:20 | Diagnostic Imaging Report ---
PROCEDURE: CT abdomen and pelvis without contrast. TECHNIQUE: Multiple contiguous axial images were obtained through the abdomen and pelvis without the use of intravenous contrast. Auto Exposure Controls were utilized during the CT exam to meet ALARA standards for radiation dose reduction. INDICATION: Back pain, history of kidney stones. COMPARISON: There are no prior CT abdomen/pelvis exams available for comparison. FINDINGS: There is no evidence for nephrolithiasis although the renal collecting systems are partially opacified due to the contrast used for the CTA head and neck exam performed prior to this study. Both kidneys do show excretion of contrast; however, there does appear to be a 6.5 mm calculus along the expected path of the right ureter at the level of L4. This calcification may be extraneous to the ureter as there is no dilatation of the ureter above or below this calcific density. There is no evidence for obstruction of the left collecting system either. There is no sign of a solid renal mass. The liver is of lower density than usually seen. This does suggest fatty metamorphosis. The gallbladder is surgically absent. The spleen, pancreas, adrenals, aorta, and inferior vena cava show no sign of an acute abnormality. The stomach is not well-distended and consequently difficult to assess. There is no pelvic mass or free fluid collection noted. The urinary bladder is only partially distended and consequently difficult to assess. The uterus is surgically absent. The appendix is not well-visualized. There is no indirect evidence for appendicitis. The bone windows show no sign of a fracture or of a destructive lesion. The lung bases are clear. IMPRESSION: 1. There is no evidence for obstruction of either collecting system. The 6.5 mm calcification along the path of the right ureter may well be extraneous to the ureter. 2. There is no acute abnormality of the abdomen or pelvis otherwise. 3. The uterus and gallbladder are surgically absent. 4. These results were discussed with Dr. Dodge in the ER. Dictated by: Dictated on workstation # [id number]
[2018-05-30 15:45] VITALS: BP 129/91
== END 2018-05-30 15:45 | disposition home or self-care (01) ==
LOC: EDUNIT# 10:56 → ER 10:57
DX: R20.0 Anesthesia of skin (principal); R20.2 Paresthesia of skin; R10.9 Unspecified abdominal pain; M54.9 Dorsalgia, unspecified; G47.30 Sleep apnea, unspecified; E78.00 Pure hypercholesterolemia, unspecified; I10 Essential (primary) hypertension; E11.9 Type 2 diabetes mellitus without complications; Z87.442 Personal history of urinary calculi; Z88.2 Allergy status to sulfonamides; Z88.8 Allergy status to other drugs, medicaments and biological substances; Z79.82 Long term (current) use of aspirin; Z79.84 Long term (current) use of oral hypoglycemic drugs; Z98.890 Other specified postprocedural states; Z90.49 Acquired absence of other specified parts of digestive tract; Z90.710 Acquired absence of both cervix and uterus; Z90.89 Acquired absence of other organs
CPT/HCPCS: 36415; 70450; 70496; 70498; 71045; 74176; 80053; 81000; 82962; 83605; 84443; 84484; 85025; 85379; 85610; 85730; 87040; 93005; 93041

== ENCOUNTER 2018-06-02 18:42 | Emergency (ER) | payer BC ==
[~2018-06-02] VITALS: Ht 162.6 cm; Wt 98.7 kg
[2018-06-02 18:54] LABS: BILIRUBIN,URINE NEGATIVE (NEGATIVE); CLARITY,URINE SLIGHTLY CLOUDY; COLOR,URINE OTHER; GLUCOSE, URINE (UA) NEGATIVE (NEGATIVE); KETONES,URINE NEGATIVE (NEGATIVE); LEUKOCYTE ESTERASE ,URINE 3+ (NEGATIVE); NITRITE,URINE NEGATIVE (NEGATIVE); PH,URINE 6 (5-9); PROTEIN,URINE 2+ (NEGATIVE); UROBILINOGEN,URINE NORMAL (NORMAL)
[2018-06-02] MEDS ORDERED: KETOROLAC 30 MG/ML VIAL IVP ONE (19:00)
--- NOTE | 2018-06-02 19:00 | NUR ---
REPORT TO PANTERA OLIVER
[2018-06-02 19:03] LABS: BACTERIA,URINE TRACE /HPF; WBC,URINE >100 /HPF
[2018-06-02 19:10] LABS: BASOPHILS % (AUTO) 0 % (0-10); EOSINOPHILS # (AUTO) 0.1 10^3/uL (0.0-0.3); EOSINOPHILS % (AUTO) 2 % (0-10); HEMATOCRIT 35 % (35-52); HEMOGLOBIN 11.9 G/DL (11.5-16.0); LYMPHOCYTES # (AUTO) 2.1 X 10^3 (1.0-4.0); LYMPHOCYTES % (AUTO) 23 % (12-44); MEAN CORPUSCULAR HEMOGLOBIN 29 PG (25-34); MEAN CORPUSCULAR HGB CONC 34 G/DL (32-36); MEAN CORPUSCULAR VOLUME 87 FL (80-99); MEAN PLATELET VOLUME 9.8 FL (7.4-10.4); MONOCYTES # (AUTO) 0.5 X 10^3 (0.0-1.0); MONOCYTES % (AUTO) 6 % (0-12); NEUTROPHILS # (AUTO) 6.4 X 10^3 (1.8-7.8); NEUTROPHILS % (AUTO) 69 % (42-75); PLATELET COUNT 325 10^3/uL (130-400); RED CELL DISTRIBUTION WIDTH 14.7 % (10.0-14.5); WHITE BLOOD COUNT 9.2 10^3/uL (4.3-11.0)
--- NOTE | 2018-06-02 19:23 | ED GU-Female ---
General Chief Complaint: - Urinary Stated Complaint: BLOOD IN URINE Nursing Triage Note: PT CO OF BLOOD IN URINE SINCE 1630 TODAY, PT STATES HAD FLANK PAIN ON R SIDE BUT NOW HAS ON BOTH SIDES RATES 08/30. Nursing Sepsis Screen: No Definite Risk Source: patient Exam Limitations: no limitations History of Present Illness Date Seen by Provider: Jun 02, 2018 Time Seen by Provider: 18:45 Initial Comments 57-year-old female who presents to the emergency room with complaints of blood in her urine that started today around 4:30. She has had flank pain that started on her right side 1 week ago but it has spread to the left side also. She has history of kidney stones. Denies fevers. Timing/Duration: this afternoon Associated Symptoms: lower back pain, urinary frequency Allergies and Home Medications Allergies Coded Allergies: sulfamethoxazole (Verified Allergy, Severe, 02/03/16) trimethoprim (Verified Allergy, Severe, 02/03/16) Home Medications Alprazolam 1 Mg Tablet, 1 MG PO HS, (Reported) Ascorbate Calcium 500 Mg Tablet, 500 MG PO BID, (Reported) Aspirin 81 Mg Tablet.dr, 81 MG PO HS, (Reported) Cephalexin 500 Mg Capsule, 500 MG PO TID Prescribed by: NEHA GARCIAS on 06/02/182030 Colestipol HCl 1 Gm Tablet, 1 GM PO HS, (Reported) Cyclobenzaprine HCl 10 Mg Tablet, 10 MG PO Q8H PRN for MUSCLE SPASMS, (Reported) Diclofenac Sodium 100 Gm Gel..gram., TP DAILY PRN PRN for PAIN, (Reported) Furosemide 40 Mg Tablet, 40 MG PO BID, (Reported) Metformin HCl 1,000 Mg Tablet, 1,000 MG PO BID, (Reported) Olmesartan Medoxomil 20 Mg Tablet, 20 MG PO DAILY, (Reported) Pantoprazole Sodium 40 Mg Tablet.dr, 40 MG PO DAILY, (Reported) Potassium Chloride 10 Meq Tablet.er, 10 MEQ PO BID, (Reported) Promethazine HCl 25 Mg Tablet, 25 MG PO Q8H PRN for NAUSEA/VOMITING, (Reported) Psyllium Husk (with Sugar) 3.4 Gm Powd.pack, 3.4 GM PO HS, (Reported) Tramadol HCl 50 Mg Tablet, 50-100 MG PO Q8H PRN for PAIN, (Reported) Patient Home Medication List Home Medication List Reviewed: Yes Review of Systems Review of Systems Constitutional: see HPI; No chills, No fever Genitourinary: see HPI, dysuria, frequency, flank pain, hematuria All Other Systemes Reviewed Negative Unless Noted: Yes Past Lmlbbyq-Nnwgti-Martfo Hx Past Med/Social Hx: Reviewed Nursing Past Med/Soc Hx Patient Social History Alcohol Use: Denies Use Recreational Drug Use: No Smoking Status: Never a Smoker Recent Foreign Travel: No Contact w/Someone Who Travel: No Recent Infectious Disease Expo: No Recent Hopitalizations: No Immunizations Up To Date Tetanus Booster (TDap): More than 5yrs Date of Pneumonia Vaccine: June 22, 2015 Seasonal Allergies Seasonal Allergies: No Past Medical History Surgeries: Yes (CERVICAL NECK SURGERY 2014, BUNION REMOVED,) Appendectomy, Gallbladder, Hysterectomy, Orthopedic, Tonsillectomy Respiratory: No Sleep Apnea Currently Using CPAP: Yes Cardiac: Yes High Cholesterol, Hypertension Neurological: No Reproductive Disorders: No 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 8.0oz. 98.213015gj; 41.26 BMI Method:Stated General Appearance: WD/WN, no apparent distress Cardiovascular: normal peripheral pulses, regular rate, rhythm, no edema, no gallop, no JVD, no murmur Respiratory: chest non-tender, lungs clear, normal breath sounds, no respiratory distress, no accessory muscle use, respiratory distress Gastrointestinal: normal bowel sounds, non tender, soft, no organomegaly, no pulsatile mass, abnormal bowel sounds Back: CVA tenderness (R), CVA tenderness (L) Extremities: normal capillary refill Neurologic/Psychiatric: alert, normal mood/affect, oriented x 3 Skin: normal color, warm/dry Progress/Results/Core Measures Suspected Sepsis Recent Fever Within 48 Hours: No Infection Criteria Present: None New/Unexplained Altered Menta: No Sepsis Screen: No Definite Risk SIRS Temperature:97.0 Pulse: 96 Respiratory Rate: 14 Laboratory Tests 06/02/18 19:00: White Blood Count 9.2 Blood Pressure 188 /93 Mean: 124 Laboratory Tests 06/02/18 19:00: Creatinine 1.05, Platelet Count 325, Total Bilirubin 0.7 Results/Orders Lab Results My Orders Orders - NEHA GARCIAS Ceftriaxone For Iv Use (Rocephin For I (06/02/18 20:30) Medications Given in ED Vital Signs/I&O Capillary Refill : Less Than 3 Seconds Blood Pressure Mean: 124 Progress Note : Time: 20:29 Progress Note I have seen and evaluated the patient. I've informed her of her laboratory findings and imaging studies. She will be treated with antibiotics for her urinary tract infection. She agrees with plan of care plans for discharge, return precautions were given. Diagnostic Imaging Diagonstic Imaging: Xray, CT Plain Films/CT/US/NM/MRI: abdomen, pelvis Comments NAME: SUZETTE CHOW [facility] REC#: [id number] PT STATUS: DEP ER : 1960 PHYSICIAN: NEHA GARCIAS ADMIT DATE: 06/02/18/ER Signed Date of Exam: 06/02/18 ABDOMEN/KUB 1VIEW Examination: AP supine abdomen Indication: Hematuria and bilateral low back pain. History of kidney stones. Comparison: CT abdomen and pelvis also performed today. Findings: Nonobstructive bowel gas pattern. Gas and stool is noted throughout the colon. No organomegaly. Multiple phleboliths overlie the pelvis. Additional amorphous calcifications along either side of the lower lumbar spine, corresponding with CT findings. No evidence of pneumoperitoneum on this supine study. Surgical clips are demonstrated in the right upper quadrant. The visualized lung bases are clear. No acute osseous abnormalities identified. Impression: Nonobstructive bowel gas pattern. No acute abnormality identified. Dictated by: Dictated on workstation # [id number] Dict: 06/02/182028 Trans: 06/03/1852 Interpreted by: DARCY HOLLOWAY DO Electronically signed by: DARCY HOLLOWAY DO 06/03/1852 NAME: SUZETTE CHOW [facility] REC#: [id number] PT STATUS: DEP ER : 1960 PHYSICIAN: NEHA GARCIAS ADMIT DATE: 06/02/18/ER Signed Date of Exam: 06/02/18 CT ABD/PELVIS WO(KIDNEY STONE) PROCEDURE: CT urinary tract, rule out kidney stone. TECHNIQUE: Multiple contiguous axial images were obtained through the abdomen and pelvis without the use of intravenous contrast. Auto Exposure Controls were utilized during the CT exam to meet ALARA standards for radiation dose reduction. INDICATION: Hematuria and bilateral low back pain. History of renal calculi. COMPARISON: CT abdomen and pelvis performed on 05/30/2018. FINDINGS: Absence of intravenous contrast decreases sensitivity for detection of lymphadenopathy, focal lesions and vascular pathology. There is mild subsegmental atelectasis in both lung bases. No pleural effusion. Visualized heart is normal in size. No pericardial effusion. The superior most aspect of the liver is excluded from the aoiuu-ma-fnqx. The visualized liver is normal. Incidental note is made of a Kiel's lobe. The spleen and adrenal glands are normal. The gallbladder surgically absent. No biliary ductal dilatation is seen. The pancreas is mildly atrophic. No pancreatic ductal dilatation is demonstrated. The kidneys are symmetric in size without evidence of renal calculus or hydronephrosis on either side. The ureters are normal. Multiple phleboliths are demonstrated on both sides, however, no calcifications are demonstrated in either ureter. The stomach and duodenum are normal. The small bowel and colon are normal in course and caliber, without evidence of wall thickening or obstruction. The appendix is not visualized and likely surgically absent given suture material in the region of the cecum. No pneumoperitoneum, abdominal free fluid, or loculated collection. No lymphadenopathy is demonstrated. The aorta is nonaneurysmal. The bladder is decompressed and not well evaluated. No bladder calculus is demonstrated. The patient is status post hysterectomy. No pelvic free fluid or adnexal mass is demonstrated. The abdominal wall is unremarkable. Multilevel degenerative changes involve the spine. No acute osseous abnormality is demonstrated. IMPRESSION: No acute abdominal or pelvic pathology. No evidence of nephroureterolithiasis or hydroureteronephrosis on either side. Scattered calcifications seen near the course of both ureters are felt to be vascular in nature. Dictated by: Dictated on workstation # [id number] Dict: 06/02/181999 Trans: 06/03/1852 Interpreted by: DARCY HOLLOWAY DO Electronically signed by: DARCY HOLLOWAY DO 06/03/18 005 Reviewed: Reviewed by Me Departure Impression Primary Impression: Urinary tract infection Disposition: HOME, SELF-CARE Condition: Stable/Unchanged Departure-Patient Inst. Decision time for Depature: 20:29 Referrals: KRISTEN PAREDES DO (PCP/Family) Primary Care Physician Patient Instructions: Urinary Tract Infection, Adult (DC) Add. Discharge Instructions: Take medications as directed. Drink plenty of clear liquids to stay hydrated and help flush out your urinary tract. Tylenol and ibuprofen as directed by the bottle for pain. Follow-up with your primary care provider as needed. Return back to the emergency room for worsening symptoms or concerns as needed. All discharge instructions reviewed with patient and/or family. Voiced understanding. Scripts Cephalexin (Keflex) 500 Mg Capsule 500 MG PO TID for 7 Days, #21 CAP Prov: NEHA GARCIAS 06/02/18 NEHA GARCIAS Jun 02, 2018 19:23
[2018-06-02 19:30] LABS: ALANINE AMINOTRANSFERASE 36 U/L (0-55); ALBUMIN 4.6 GM/DL (3.2-4.5); ALKALINE PHOSPHATASE 82 U/L (40-136); BILIRUBIN,TOTAL 0.7 MG/DL (0.1-1.0); BUN/CREATININE RATIO 16; CALCIUM 10.1 MG/DL (8.5-10.1); CARBON DIOXIDE 23 MMOL/L (21-32); CHLORIDE 106 MMOL/L (98-107); CREATININE SERUM 1.05 MG/DL (0.60-1.30); GFR ESTIMATED 54; GLUCOSE 112 MG/DL (70-105); POTASSIUM 3.1 MMOL/L (3.6-5.0); SODIUM 144 MMOL/L (135-145); TOTAL PROTEIN 7.1 GM/DL (6.4-8.2)
--- NOTE | 2018-06-02 20:11 | Diagnostic Imaging Report ---
PROCEDURE: CT urinary tract, rule out kidney stone. TECHNIQUE: Multiple contiguous axial images were obtained through the abdomen and pelvis without the use of intravenous contrast. Auto Exposure Controls were utilized during the CT exam to meet ALARA standards for radiation dose reduction. INDICATION: Hematuria and bilateral low back pain. History of renal calculi. COMPARISON: CT abdomen and pelvis performed on 05/30/2018. FINDINGS: Absence of intravenous contrast decreases sensitivity for detection of lymphadenopathy, focal lesions and vascular pathology. There is mild subsegmental atelectasis in both lung bases. No pleural effusion. Visualized heart is normal in size. No pericardial effusion. The superior most aspect of the liver is excluded from the itnow-ve-erco. The visualized liver is normal. Incidental note is made of a Kiel's lobe. The spleen and adrenal glands are normal. The gallbladder surgically absent. No biliary ductal dilatation is seen. The pancreas is mildly atrophic. No pancreatic ductal dilatation is demonstrated. The kidneys are symmetric in size without evidence of renal calculus or hydronephrosis on either side. The ureters are normal. Multiple phleboliths are demonstrated on both sides, however, no calcifications are demonstrated in either ureter. The stomach and duodenum are normal. The small bowel and colon are normal in course and caliber, without evidence of wall thickening or obstruction. The appendix is not visualized and likely surgically absent given suture material in the region of the cecum. No pneumoperitoneum, abdominal free fluid, or loculated collection. No lymphadenopathy is demonstrated. The aorta is nonaneurysmal. The bladder is decompressed and not well evaluated. No bladder calculus is demonstrated. The patient is status post hysterectomy. No pelvic free fluid or adnexal mass is demonstrated. The abdominal wall is unremarkable. Multilevel degenerative changes involve the spine. No acute osseous abnormality is demonstrated. IMPRESSION: No acute abdominal or pelvic pathology. No evidence of nephroureterolithiasis or hydroureteronephrosis on either side. Scattered calcifications seen near the course of both ureters are felt to be vascular in nature. Dictated by: Dictated on workstation # [id number]
[2018-06-02] MEDS ORDERED: cefTRIAXone FOR IV USE 1,000 MG in WATER (STERILE) FOR INJECTION 10 ML IV ONE (20:30)
[2018-06-02] MEDS ORDERED: CEPH-507 PO (20:31)
[2018-06-02 20:35] VITALS: BP 143/82
--- NOTE | 2018-06-02 20:35 | Diagnostic Imaging Report ---
Examination: AP supine abdomen Indication: Hematuria and bilateral low back pain. History of kidney stones. Comparison: CT abdomen and pelvis also performed today. Findings: Nonobstructive bowel gas pattern. Gas and stool is noted throughout the colon. No organomegaly. Multiple phleboliths overlie the pelvis. Additional amorphous calcifications along either side of the lower lumbar spine, corresponding with CT findings. No evidence of pneumoperitoneum on this supine study. Surgical clips are demonstrated in the right upper quadrant. The visualized lung bases are clear. No acute osseous abnormalities identified. Impression: Nonobstructive bowel gas pattern. No acute abnormality identified. Dictated by: Dictated on workstation # [id number]
== END 2018-06-02 20:38 | disposition home or self-care (01) ==
LOC: EDUNIT# 18:42 → ER 18:43
DX: N39.0 Urinary tract infection, site not specified (principal); G47.30 Sleep apnea, unspecified; E78.00 Pure hypercholesterolemia, unspecified; I10 Essential (primary) hypertension; E11.9 Type 2 diabetes mellitus without complications; Z87.442 Personal history of urinary calculi; Z88.2 Allergy status to sulfonamides; Z88.8 Allergy status to other drugs, medicaments and biological substances; Z79.82 Long term (current) use of aspirin; Z79.84 Long term (current) use of oral hypoglycemic drugs; Z98.890 Other specified postprocedural states; Z90.49 Acquired absence of other specified parts of digestive tract; Z90.710 Acquired absence of both cervix and uterus; Z90.89 Acquired absence of other organs
CPT/HCPCS: 36415; 74018; 74176; 80053; 81000; 85025; 87088

== ENCOUNTER → 2018-06-16 | Outpatient (CLI) | payer BC ==
[~2018-06-16] MED LIST changes: +CEPH-507 PO
--- NOTE | 2018-06-19 11:37 | Diagnostic Imaging Report ---
INDICATION: Screening. COMPARISON: 03/21/2017, 02/10/2016, and 01/01/2015. TECHNIQUE: Bilateral CC and MLO 3D mammography was performed. The current study was also evaluated with a Computer Aided Detection (CAD) system. FINDINGS: There are scattered fibroglandular densities bilaterally. There is a surgical clip in the upper outer left breast. There is no new dominant mass, spiculated lesion, or suspicious calcifications identified. The skin, nipples, and axillae are unremarkable. IMPRESSION: Category 2 benign Dictated by: Dictated on workstation # [id number]
== END ==
LOC: RAD 11:27
PROVIDERS: ATTEND Internal Medicine
DX: Z12.31 Encounter for screening mammogram for malignant neoplasm of breast (principal)
CPT/HCPCS: 77067

== ENCOUNTER → 2018-06-22 | Outpatient (CLI) | payer BC ==
[2018-06-22 15:39] LABS: BASOPHILS % (AUTO) 1 % (0-10); EOSINOPHILS # (AUTO) 0.1 10^3/uL (0.0-0.3); EOSINOPHILS % (AUTO) 2 % (0-10); HEMATOCRIT 31 % (35-52); HEMOGLOBIN 10.2 G/DL (11.5-16.0); LYMPHOCYTES # (AUTO) 1.8 X 10^3 (1.0-4.0); LYMPHOCYTES % (AUTO) 39 % (12-44); MEAN CORPUSCULAR HEMOGLOBIN 29 PG (25-34); MEAN CORPUSCULAR HGB CONC 33 G/DL (32-36); MEAN CORPUSCULAR VOLUME 88 FL (80-99); MEAN PLATELET VOLUME 9.7 FL (7.4-10.4); MONOCYTES # (AUTO) 0.4 X 10^3 (0.0-1.0); MONOCYTES % (AUTO) 8 % (0-12); NEUTROPHILS # (AUTO) 2.4 X 10^3 (1.8-7.8); NEUTROPHILS % (AUTO) 50 % (42-75); PLATELET COUNT 270 10^3/uL (130-400); RED CELL DISTRIBUTION WIDTH 15.2 % (10.0-14.5); WHITE BLOOD COUNT 4.7 10^3/uL (4.3-11.0)
[2018-06-22 16:08] LABS: BILIRUBIN,TOTAL 0.5 MG/DL (0.1-1.0); CALCIUM 9.6 MG/DL (8.5-10.1); CREATININE SERUM 1.22 MG/DL (0.60-1.30); POTASSIUM 3.9 MMOL/L (3.6-5.0); TOTAL PROTEIN 6.3 GM/DL (6.4-8.2)
[2018-06-22 16:22] LABS: ERYTHROCYTE SEDIMENTATION RATE 19 MM/HR (0-30)
[2018-06-22 16:30] LABS: FREE T4 (FREE THYROXINE) 1.04 NG/DL (0.70-1.48)
== END ==
LOC: LAB 15:19
PROVIDERS: ATTEND Internal Medicine
DX: Z00.00 Encounter for general adult medical examination without abnormal findings (principal); E13.9 Other specified diabetes mellitus without complications; E03.9 Hypothyroidism, unspecified; E78.00 Pure hypercholesterolemia, unspecified; E78.1 Pure hyperglyceridemia; R70.0 Elevated erythrocyte sedimentation rate; R74.0 Nonspecific elevation of levels of transaminase and lactic acid dehydrogenase [LDH]; R79.82 Elevated C-reactive protein (CRP)
CPT/HCPCS: 36415; 80053; 80061; 83036; 83605; 84439; 84443; 85025; 85652; 86141

== ENCOUNTER 2018-08-28 13:39 | Outpatient (RCR) | payer BC | END 2018-11-26 | disposition home or self-care (01) | LOC: CARD 13:39 | PROVIDERS: ATTEND Physician Assistant | DX: I25.10 Atherosclerotic heart disease of native coronary artery without angina pectoris (principal); I10 Essential (primary) hypertension; R00.2 Palpitations; E11.9 Type 2 diabetes mellitus without complications | CPT/HCPCS: 93225; 93226; 93306 ==

== ENCOUNTER → 2018-10-04 | Outpatient (CLI) | payer BC ==
--- NOTE | 2018-10-05 08:20 | Diagnostic Imaging Report ---
MRI LT UPPER EXT JOINT W/O Technique: Multiplanar, multisequence MR imaging of the left shoulder was performed without contrast. Comparison: None available. Indication: Left shoulder pain with features of subacromial impingement. Findings: Rotator cuff: Full-thickness tear of the anterior one half of the supraspinatus has fibers retracted to the mid humeral head. Posterior one half of the supraspinatus remains intact with mild tendinopathy present. Infraspinatus has minimal tendinopathy as well without superimposed tear. Teres minor and subscapularis remain intact. No rotator cuff muscle atrophy or edema. Glenoid labrum: By non-arthrogram imaging, the glenoid labrum appears intact. No para-labral cyst. Long head of biceps: The biceps origin is intact at the biceps labral anchor. However, there is marked tendinopathy and partial-thickness tearing of the long head of the biceps at its distal intracapsular segment and within the bicipital groove. A small amount of tenosynovitis is also present. Bones and cartilage: Humeral head is normal in morphology without fracture or focal osseous lesion. No glenohumeral chondromalacia. Moderate hypertrophic degenerative changes of acromioclavicular joint with inferior projecting osteophytes into the subacromial space. Soft tissues: Small glenohumeral joint effusion. No MRI findings to suggest adhesive capsulitis. Fluid in the subacromial/subdeltoid space is likely due to joint fluid extending through the full-thickness supraspinatus tear. IMPRESSION: 1. Full-thickness tear of the anterior one half of the supraspinatus is retracted to the level of mid humeral head. No associated muscle belly atrophy. 2. Long head of biceps tenosynovitis with associated tendinosis and partial-thickness tearing. 3. Hypertrophic osteoarthritis of the acromioclavicular joint has inferior projecting osteophytes that could predispose to subacromial impingement. Dictated by: Dictated on workstation # [id number]
== END ==
LOC: RAD 16:47
PROVIDERS: ATTEND Nurse Practitioner Family
DX: S46.012A Strain of muscle(s) and tendon(s) of the rotator cuff of left shoulder, initial encounter (principal); S46.112A Strain of muscle, fascia and tendon of long head of biceps, left arm, initial encounter; M75.22 Bicipital tendinitis, left shoulder; M19.012 Primary osteoarthritis, left shoulder
CPT/HCPCS: 73221

== ENCOUNTER → 2018-10-25 | Outpatient (REF) ==
--- NOTE | 2018-10-25 10:16 | Diagnostic Imaging Report ---
INDICATION: Shoulder pain. COMPARISON: MRI dated 10/04/2018. TECHNIQUE: Three radiographs of the left shoulder are dated 10/25/2018. FINDINGS: There are mild degenerative changes of the acromioclavicular joint. Inferiorly projecting osteophytes are again noted. No acute fracture or dislocation. No destructive osseous process. The subacromial space is well maintained. IMPRESSION: No acute osseous abnormality with mild degenerative changes of the acromioclavicular joint. Inferiorly projecting osteophytes arise from the acromion. This can predispose to impingement syndrome. Recommend clinical correlation. Dictated by: Dictated on workstation # [id number]
--- NOTE | 2018-10-25 10:21 | Diagnostic Imaging Report ---
Indication: Low back injury. Time of exam 10:00 a.m. 3 views of the lumbar spine were obtained. Curvature and alignment is normal. Vertebral body heights are maintained. No acute compression fracture is seen. There is degenerative disc disease at all levels of the lumbar spine with variable disc space narrowing and marginal spurring. Minimal anterolisthesis L4 on L5 is seen. Impression: Diffuse lumbar spondylosis. No acute bony abnormality is detected. Dictated by: Dictated on workstation # [id number]
== END | disposition home or self-care (01) ==
LOC: MERGE 09:40 → OCC 09:40
PROVIDERS: ATTEND Family Medicine
CPT/HCPCS: 72100; 73030

== ENCOUNTER → 2019-01-01 | Outpatient (CLI) | payer BC ==
[2019-01-01 17:45] LABS: ALANINE AMINOTRANSFERASE 32 U/L (0-55); ALBUMIN 4.7 GM/DL (3.2-4.5); ALKALINE PHOSPHATASE 98 U/L (40-136); BILIRUBIN,TOTAL 0.4 MG/DL (0.1-1.0); BUN/CREATININE RATIO 15; CALCIUM 10.1 MG/DL (8.5-10.1); CARBON DIOXIDE 24 MMOL/L (21-32); CHLORIDE 103 MMOL/L (98-107); CHOLESTEROL 185 MG/DL (< 200); CREATININE SERUM 1.13 MG/DL (0.60-1.30); GFR ESTIMATED 50; GLUCOSE 122 MG/DL (70-105); POTASSIUM 3.8 MMOL/L (3.6-5.0); SODIUM 139 MMOL/L (135-145); TOTAL PROTEIN 7.6 GM/DL (6.4-8.2); TRIGLYCERIDES 209 MG/DL (<150)
== END ==
LOC: LAB 17:04
PROVIDERS: ATTEND Internal Medicine
DX: Z00.00 Encounter for general adult medical examination without abnormal findings (principal); E78.00 Pure hypercholesterolemia, unspecified; E78.1 Pure hyperglyceridemia; E13.9 Other specified diabetes mellitus without complications
CPT/HCPCS: 36415; 80053; 82043; 82465; 83036; 84478

== ENCOUNTER → 2019-01-08 | Outpatient (CLI) | payer BC | LOC: LAB 14:38 | PROVIDERS: ATTEND Internal Medicine | DX: R80.9 Proteinuria, unspecified (principal) | CPT/HCPCS: 36415; 82043 ==

== ENCOUNTER → 2019-04-23 | Outpatient (CLI) | payer BC ==
[~2019-04-23] MED LIST changes: +BARIUM for suspension 96% w/w (Vanilla Silq Medium Density) PO ONE; +BARIUM for suspension 98% w/w (Vanilla Silq High Density) PO ONE; -TRAM50TA2 PO; +TRM50T PO
--- NOTE | 2019-04-23 12:09 | Diagnostic Imaging Report ---
EXAMINATION: Upper GI exam. INDICATION: Preop gastric sleeve. COMPARISON: There are no prior studies available for comparison. FINDINGS: The preliminary films are unremarkable for an acute abnormality. There does seem to be considerable bony overgrowth of the facet joints on the left in the lower cervical spine. This finding is quite similar to the CT soft tissue neck exam of 12/28/2013. Also, there is an orthopedic plate and screw fixation device along the anterior aspect of the C6-C7 level, consistent with a prior anterior fusion. A double contrast exam was performed. The patient swallowed the contrast material without difficulty. There was no delay or obstruction in the passage of barium through the esophagus. There was no sign of a hiatal hernia or of gastroesophageal reflux. The stomach shows good distensibility and motility. There is no mass or ulceration evident. The duodenal bulb and proximal small bowel were unremarkable. IMPRESSION: 1. There is no evidence for hiatal hernia or for gastroesophageal reflux. 2. There is no gastric mass or ulceration noted. 3. The duodenal bulb and proximal small bowel are within normal limits. Dictated by: Dictated on workstation # [id number]
== END ==
LOC: RAD 10:45
PROVIDERS: ATTEND Surgery
DX: Z01.818 Encounter for other preprocedural examination (principal); K21.9 Gastro-esophageal reflux disease without esophagitis
CPT/HCPCS: 74246

== ENCOUNTER 2019-12-15 13:34 | Emergency (ER) | payer BC ==
[~2019-12-15] VITALS: Ht 162 cm; Wt 108.8 kg
[~2019-12-15 13:34] MED LIST changes: +ASPI-1238 PO; -ASPI-983 PO; -BARIUM for suspension 96% w/w (Vanilla Silq Medium Density) PO ONE; -BARIUM for suspension 98% w/w (Vanilla Silq High Density) PO ONE; -PANT40TA3 PO; +PANT40TA52 PO
[2019-12-15 14:42] LABS: BASOPHILS # (AUTO) 0.1 10^3/uL (0.0-0.1); BASOPHILS % (AUTO) 1 % (0-10); EOSINOPHILS # (AUTO) 0.1 10^3/uL (0.0-0.3); EOSINOPHILS % (AUTO) 2 % (0-10); HEMATOCRIT 44 % (35-52); HEMOGLOBIN 14.2 g/dL (11.5-16.0); LYMPHOCYTES % (AUTO) 37 % (12-44); MEAN CORPUSCULAR HEMOGLOBIN 29 pg (25-34); MEAN CORPUSCULAR HGB CONC 32 g/dL (32-36); MEAN CORPUSCULAR VOLUME 89 fL (80-99); MEAN PLATELET VOLUME 10.2 fL (9.0-12.2); MONOCYTES # (AUTO) 0.4 10^3/uL (0.0-1.0); MONOCYTES % (AUTO) 7 % (0-12); NEUTROPHILS # (AUTO) 2.9 10^3/uL (1.8-7.8); NEUTROPHILS % (AUTO) 53 % (42-75); PLATELET COUNT 333 10^3/uL (130-400); WHITE BLOOD COUNT 5.4 10^3/uL (4.3-11.0)
[2019-12-15 14:58] LABS: ALBUMIN 4.9 GM/DL (3.2-4.5); CHLORIDE 103 MMOL/L (98-107); INR 0.9 (0.8-1.4); POTASSIUM 3.5 MMOL/L (3.6-5.0); PROTHROMBIN TIME PATIENT 12.3 SEC (12.2-14.7); SODIUM 143 MMOL/L (135-145)
[2019-12-15 14:59] LABS: CALCIUM 10.2 MG/DL (8.5-10.1)
[2019-12-15 15:00] LABS: GLUCOSE 127 MG/DL (70-105)
[2019-12-15 15:01] LABS: TOTAL PROTEIN 8.2 GM/DL (6.4-8.2)
[2019-12-15 15:02] LABS: BILIRUBIN,TOTAL 0.9 MG/DL (0.1-1.0); CARBON DIOXIDE 27 MMOL/L (21-32)
[2019-12-15 15:04] LABS: ALKALINE PHOSPHATASE 104 U/L (40-136); CREATININE SERUM 1.36 MG/DL (0.60-1.30); GFR ESTIMATED 40
[2019-12-15 15:05] LABS: BUN/CREATININE RATIO 14
[2019-12-15 15:07] LABS: ALANINE AMINOTRANSFERASE 42 U/L (0-55); MAGNESIUM 2.2 MG/DL (1.6-2.4)
--- NOTE | 2019-12-15 15:28 | Diagnostic Imaging Report ---
PATIENT HISTORY: Chest pain. TECHNIQUE: Single frontal view of the chest. COMPARISON: 05/30/2018. FINDINGS: The lung volumes are low. No focal consolidation is seen. No large pleural effusion or pneumothorax is seen. The cardiomediastinal silhouette is normal in size and contour. No acute osseous abnormality is seen. IMPRESSION: Low lung volumes with no acute pulmonary abnormality seen. Dictated by: Dictated on workstation # [id number]
[2019-12-15] MEDS ORDERED: ASPIRIN 81 MG CHEW (CHILDREN'S ASA) PO ONE (15:30)
[2019-12-15] MEDS ORDERED: NITROGLYCERIN 0.4 MG SL TABS BTL 25'S SL PRN (15:30)
[2019-12-15] MEDS ORDERED: LACTATED RINGERS 1,000 ML IV ONE (17:12)
[2019-12-15] MEDS ORDERED: IOHEXOL 350 MG/ML 100 ML (OMNIPAQUE 350) VIAL IV ONE (17:45)
[2019-12-15] MEDS ORDERED: NS 100 ML (IVPB) BAG IV ONE (17:45)
[2019-12-15] MEDS ORDERED: HOLD METFORMIN - RECEIVED CONTRAST 20 ML VIAL IV SCH (17:45)
--- NOTE | 2019-12-15 18:21 | Diagnostic Imaging Report ---
PROCEDURE: CT angiography of the chest with contrast. TECHNIQUE: Multiple contiguous axial images were obtained through the chest after uneventful bolus administration of intravenous contrast. 3D reconstructed CTA MIP acquisitions were also performed. Auto Exposure Controls were utilized during the CT exam to meet ALARA standards for radiation dose reduction. INDICATION: Shortness of breath. Elevated d-dimer. COMPARISON: Chest radiograph 12/15/2019. FINDINGS: No pulmonary emboli. Normal caliber thoracic aorta. Normal heart size. No pericardial effusion. No mediastinal, hilar or axillary lymphadenopathy. Mild geographic groundglass opacities in the lung bases. No pleural effusion or pneumothorax. Cholecystectomy. No acute osseous finding. Partially visualized postoperative findings in the lower cervical spine. IMPRESSION: 1. No pulmonary emboli. 2. Mild geographic ground glass opacities in the lung bases likely due to atelectasis. An early pneumonitis cannot be excluded. Dictated by: Dictated on workstation # [id number]
[2019-12-15] MEDS ORDERED: AZITHROMYCIN 250 MG TAB (ZITHROMAX) PO ONE (18:45)
--- NOTE | 2019-12-15 18:53 | ED Chest Pain ---
General Chief Complaint: Respiratory Problems Stated Complaint: SOA Nursing Triage Note: PT AMB TO ROOM 10 WIHTOUT DIFFICULTY. PT REPORTS SOB THAT STARTED YESTERDAY. Nursing Sepsis Screen: No Definite Risk Source: patient Exam Limitations: no limitations History of Present Illness Date Seen by Provider: Dec 15, 2019 Time Seen by Provider: 14:25 Initial Comments This 59-year-old woman presents to the emergency room with complaints of shortness of breath 2 days and mild left upper chest pressure for 3 days. She has had a slight cough but denies fever. She has had no definite known recent COVID-19 exposures. She has risk factors for heart disease including diabetes and strong family history. She had a cardiac angiography performed by Dr. Gale four years ago. She had a minimal 30 percent stenosis but no obstructive disease. She was thought to be experiencing coronary vasospasm at that time. There are no particular exacerbating or alleviating factors for her symptoms. Allergies and Home Medications Allergies Coded Allergies: sulfamethoxazole (Verified Allergy, Severe, 02/03/16) trimethoprim (Verified Allergy, Severe, 02/03/16) Home Medications Alprazolam 1 Mg Tablet, 1 MG PO HS, (Reported) Ascorbate Calcium 500 Mg Tablet, 500 MG PO BID, (Reported) Aspirin 81 Mg Tablet.dr, 81 MG PO HS, (Reported) Azithromycin 250 Mg Tablet, 250 MG PO DAILY Prescribed by: LATOSHA FRANCOIS on 12/15/191856 Cephalexin 500 Mg Capsule, 500 MG PO TID Prescribed by: NEHA GARCIAS on 06/02/182030 Colestipol HCl 1 Gm Tablet, 1 GM PO HS, (Reported) Cyclobenzaprine HCl 10 Mg Tablet, 10 MG PO Q8H PRN for MUSCLE SPASMS, (Reported) Diclofenac Sodium 100 Gm Gel..gram., TP DAILY PRN PRN for PAIN, (Reported) Furosemide 40 Mg Tablet, 40 MG PO BID, (Reported) Metformin HCl 1,000 Mg Tablet, 1,000 MG PO BID, (Reported) Olmesartan Medoxomil 20 Mg Tablet, 20 MG PO DAILY, (Reported) Pantoprazole Sodium 40 Mg Tablet.dr, 40 MG PO DAILY, (Reported) Potassium Chloride 10 Meq Tablet.er, 10 MEQ PO BID, (Reported) Promethazine HCl 25 Mg Tablet, 25 MG PO Q8H PRN for NAUSEA/VOMITING, (Reported) Psyllium Husk (with Sugar) 3.4 Gm Powd.pack, 3.4 GM PO HS, (Reported) Tramadol HCl 50 Mg Tablet, 50-100 MG PO Q8H PRN for PAIN, (Reported) Patient Home Medication List Home Medication List Reviewed: Yes Review of Systems Review of Systems Constitutional: no symptoms reported EENTM: No Symptoms Reported Respiratory: See HPI Cardiovascular: See HPI Gastrointestinal: No Symptoms Reported Genitourinary: No Symptoms Reported Musculoskeletal: no symptoms reported Skin: no symptoms reported Psychiatric/Neurological: No Symptoms Reported Endocrine: No Symptoms Reported Past Ejtudfz-Meispa-Nfvjkm Hx Past Med/Social Hx: Reviewed and Corrections made Patient Social History Alcohol Use: Denies Use Recreational Drug Use: No Smoking Status: Never a Smoker Recent Foreign Travel: No Contact w/Someone Who Travel: No Recent Infectious Disease Expo: No Recent Hopitalizations: No Immunizations Up To Date Tetanus Booster (TDap): More than 5yrs Date of Pneumonia Vaccine: June 22, 2015 Seasonal Allergies Seasonal Allergies: No Past Medical History Surgeries: Yes (CERVICAL NECK SURGERY 2014, BUNION REMOVED,) Appendectomy, Gallbladder, Hysterectomy, Orthopedic, Tonsillectomy Respiratory: No Sleep Apnea Currently Using CPAP: Yes Cardiac: Yes Coronary Artery Disease, High Cholesterol, Hypertension Neurological: No 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 8.0oz. 98.967382gs; 41.00 BMI Method:Stated General Appearance: No Apparent Distress, WD/WN, Obese HEENT: PERRL/EOMI, Normal ENT Inspection Neck: Normal Inspection; No JVD Respiratory: Chest Non Tender, Lungs Clear, Normal Breath Sounds, No Accessory Muscle Use, No Respiratory Distress Cardiovascular: Regular Rate, Rhythm, No Edema, No Murmur Gastrointestinal: Normal Bowel Sounds, Non Tender, Soft Extremity: Normal Inspection, Non Tender, No Calf Tenderness, No Pedal Edema Neurologic/Psychiatric: Alert, Oriented x3, No Motor/Sensory Deficits, Normal Mood/Affect, [employer] II-XII Norm as Tested Skin: Normal Color, Warm/Dry Progress/Results/Core Measures Results/Orders Lab Results Laboratory Tests Test 12/15/19 14:11 12/15/19 14:14 12/15/19 17:29 12/15/19 19:15 Range/Units White Blood Count 5.4 4.3-11.0 10^3/uL Red Blood Count 4.91 3.80-5.11 10^6/uL Hemoglobin 14.2 11.5-16.0 g/dL Hematocrit 44 35-52 % Mean Corpuscular Volume 89 80-99 fL Mean Corpuscular Hemoglobin 29 25-34 pg Mean Corpuscular Hemoglobin Concent 32 32-36 g/dL Red Cell Distribution Width 14.4 10.0-14.5 % Platelet Count 333 130-400 10^3/uL Mean Platelet Volume 10.2 9.0-12.2 fL Immature Granulocyte % (Auto) 0 % Neutrophils (%) (Auto) 53 42-75 % Lymphocytes (%) (Auto) 37 12-44 % Monocytes (%) (Auto) 7 0-12 % Eosinophils (%) (Auto) 2 0-10 % Basophils (%) (Auto) 1 0-10 % Neutrophils # (Auto) 2.9 1.8-7.8 10^3/uL Lymphocytes # (Auto) 2.0 1.0-4.0 10^3/uL Monocytes # (Auto) 0.4 0.0-1.0 10^3/uL Eosinophils # (Auto) 0.1 0.0-0.3 10^3/uL Basophils # (Auto) 0.1 0.0-0.1 10^3/uL Immature Granulocyte # (Auto) 0.0 0.0-0.1 10^3/uL Prothrombin Time 12.3 12.2-14.7 SEC INR Comment 0.9 0.8-1.4 Activated Partial Thromboplast Time 25 24-35 SEC D-Dimer 0.52 H 0.00-0.49 UG/ML Sodium Level 143 135-145 MMOL/L Potassium Level 3.5 L 3.6-5.0 MMOL/L Chloride Level 103 98-107 MMOL/L Carbon Dioxide Level 27 21-32 MMOL/L Anion Gap 13 5-14 MMOL/L Blood Urea Nitrogen 19 H 7-18 MG/DL Creatinine 1.36 H 0.60-1.30 MG/DL Estimat Glomerular Filtration Rate 40 BUN/Creatinine Ratio 14 Glucose Level 127 H 70-105 MG/DL Calcium Level 10.2 H 8.5-10.1 MG/DL Corrected Calcium 8.5-10.1 MG/DL Magnesium Level 2.2 1.6-2.4 MG/DL Total Bilirubin 0.9 0.1-1.0 MG/DL Aspartate Amino Transf (AST/SGOT) 31 5-34 U/L Alanine Aminotransferase (ALT/SGPT) 42 0-55 U/L Alkaline Phosphatase 104 40-136 U/L Lactate Dehydrogenase 257 H 125-220 U/L Myoglobin 36.5 10.0-92.0 NG/ML Troponin I < 0.028 < 0.028 <0.028 NG/ML C-Reactive Protein High Sensitivity 0.29 0.00-0.50 MG/DL B-Type Natriuretic Peptide < 10.0 <100.0 PG/ML Total Protein 8.2 6.4-8.2 GM/DL Albumin 4.9 H 3.2-4.5 GM/DL Coronavirus 2019 (SUNDEEP) Negative Negative Micro Results Microbiology 12/15/19 Influenza Types A,B Antigen (DAREN) - Final, Complete My Orders Orders - LATOSHA GROSS MD Fibrin Degradation Products (12/15/19 15:20) BNP (12/15/19 15:20) Nitroglycerin 0.4 Mg Btl 25's (Nitrostat (12/15/19 15:30) Aspirin Chewable Tablet (Baby Aspirin Ch (12/15/19 15:30) Hs C Reactive Protein (12/15/19 15:26) LDH (12/15/19 15:26) Ct Angio Chest W (12/15/19 17:12) Lactated Ringers (Lr 1000 Ml Iv Solution (12/15/19 17:12) Troponin I (12/15/19 17:20) Iohexol Injection (Omnipaque 350 Mg/Ml 1 (12/15/19 17:45) Received Contrast (Hold Metformin- Contr (12/15/19 17:45) Ns (Ivpb) (Sodium Chloride 0.9% Ivpb Bag (12/15/19 17:45) Azithromycin Tablet (Zithromax Tablet) (12/15/19 18:45) Coronavirus Sars-Cov-2 So 2019 (12/15/19 18:43) Medications Given in ED Current Medications Medications Dose Ordered Sig/Tomasa Route Start Time Stop Time Status Last Admin Dose Admin Aspirin 324 mg ONCE ONCE PO 12/15/19 15:30 12/15/19 15:31 DC 12/15/19 16:31 324 MG Azithromycin 500 mg ONCE ONCE PO 12/15/19 18:45 12/15/19 18:46 DC 12/15/19 19:18 500 MG Iohexol 100 ml ONCE ONCE IV 12/15/19 17:45 12/15/19 17:46 DC 12/15/19 18:00 65 ML Lactated Ringer's 1,000 ml @ 0 mls/hr Q0M ONCE IV 12/15/19 17:12 12/15/19 17:13 DC 12/15/19 17:21 1,000 MLS/HR Nitroglycerin 0.4 mg UD PRN SL 12/15/19 15:30 12/15/19 16:34 0.4 MG Sodium Chloride 100 ml ONCE ONCE IV 12/15/19 17:45 12/15/19 17:46 DC 12/15/19 18:00 80 ML Vital Signs/I&O 12/15/19 13:45 Temp 36.4 Pulse 106 Resp 24 B/P (MAP) 152/105 (121) Pulse Ox 97 O2 Delivery Room Air Blood Pressure Mean: 121 Progress Progress Note : Progress Note Initial cardiac workup was unremarkable. Aspirin and nitroglycerin were administered and pain was relieved with nitroglycerin. D-dimer was minimally elevated. CT angiogram was obtained. It revealed no pulmonary emboli but there were ground glass opacities possibly representing pneumonitis or atelectasis. Rapid COVID-19 test was negative. The backup PCR test was obtained prior to discharge. A repeat troponin 3 hours after the initial was negative. Case was reviewed with Dr. Gale who believed patient could be safely discharged home from a cardiac perspective. She was advised to have close follow-up in the clinic. She was dispensed the remainder of the nitroglycerin tablets. See discharge instructions. Azithromycin was given for possible pneumonitis/atypical pneumonia. The first dose was administered in the ER. A liter of IV fluid was administered for contrast-induced nephropathy prophylaxis. Initial ECG Impression Date: Dec 15, 2019 Initial ECG Impression Time: 14:27 Initial ECG Rate: 83 Initial ECG Rhythm: Normal Sinus Initial ECG Impression: Normal Comment Normal sinus rhythm with no ST elevation or depression. No abnormal intervals or axis deviation. Diagnostic Imaging Diagonstic Imaging: Xray Plain Films/CT/US/NM/MRI: chest Comments chest x-ray viewed by me and report reviewed. See report below: NAME: SUZETTE CHOW [facility] REC#: [id number] PT STATUS: REG ER : 1960 PHYSICIAN: RITESH WILDE APRN ADMIT DATE: 12/15/19/ER Signed Date of Exam:12/15/19 CHEST 1 VIEW, AP/PA ONLY PATIENT HISTORY: Chest pain. TECHNIQUE: Single frontal view of the chest. COMPARISON: 05/30/2018. FINDINGS: The lung volumes are low. No focal consolidation is seen. No large pleural effusion or pneumothorax is seen. The cardiomediastinal silhouette is normal in size and contour. No acute osseous abnormality is seen. IMPRESSION: Low lung volumes with no acute pulmonary abnormality seen. Dictated by: Dictated on workstation # [id number] Dict: 12/15/19 1526 Trans: 12/15/19 1542 [facility] [id number] Interpreted by: DASHA JANE MD Electronically signed by: DASHA JANE MD 12/15/19 1542 Diagonstic Imaging: CT Plain Films/CT/US/NM/MRI: chest Comments CT angiogram of the chest viewed by me. Report reviewed. See report below: NAME: SUZETTE CHOW [facility] REC#: [id number] PT STATUS: REG ER : 1960 PHYSICIAN: LATOSHA GROSS MD ADMIT DATE: 12/15/19/ER Draft Date of Exam:12/15/19 CT ANGIO CHEST W PROCEDURE: CT angiography of the chest with contrast. TECHNIQUE: Multiple contiguous axial images were obtained through the chest after uneventful bolus administration of intravenous contrast. 3D reconstructed CTA MIP acquisitions were also performed. Auto Exposure Controls were utilized during the CT exam to meet ALARA standards for radiation dose reduction. INDICATION: Shortness of breath. Elevated d-dimer. COMPARISON: Chest radiograph 12/15/2019. FINDINGS: No pulmonary emboli. Normal caliber thoracic aorta. Normal heart size. No pericardial effusion. No mediastinal, hilar or axillary lymphadenopathy. Mild geographic groundglass opacities in the lung bases. No pleural effusion or pneumothorax. Cholecystectomy. No acute osseous finding. Partially visualized postoperative findings in the lower cervical spine. IMPRESSION: 1. No pulmonary emboli. 2. Mild geographic ground glass opacities in the lung bases likely due to atelectasis. An early pneumonitis cannot be excluded. Dictated on workstation # [id number] Dict: 12/15/191816 Trans: 12/15/191820 [facility] [id number] Interpreted by: KIM IBARRA MD Departure Impression Primary Impression: Chest pain Qualified Codes: R07.9 - Chest pain, unspecified Additional Impressions: Dyspnea Qualified Codes: R06.00 - Dyspnea, unspecified Ground glass opacity present on imaging of lung Disposition: HOME, SELF-CARE Condition: Improved Departure-Patient Inst. Decision time for Depature: 18:50 Referrals: KRISTEN PAREDES DO (PCP/Family) Primary Care Physician Patient Instructions: Chest Pain Add. Discharge Instructions: Drink plenty of clear liquids to stay well-hydrated and flush out the contrast dye you received for CT imaging. Complete your antibiotic as prescribed. Stay in quarantine until the results of your COVID-19 test is known. Follow-up with Dr. Gale in about 1 week. Please call on Tuesday morning for an appointment. Please also follow-up with your primary care provider soon as possible. You may use nitroglycerin 1 tablet every 5 minutes as needed to treat chest pain. If you do not have complete relief of chest pain after 3 doses return to the emergency room. Return to care or call if you have any worsening problems or concerns. All discharge instructions reviewed with patient and/or family. Voiced understanding. Scripts Azithromycin (Azithromycin) 250 Mg Tablet 250 MG PO DAILY, #4 TAB 0 Refills Prov: LATOSHA GROSS MD 12/15/19 Copy Copies To 1: YARELI GALE MD Copies To 2: KRISTEN PAREDES JOSHUA T MD Dec 15, 2019 18:53
[2019-12-15] MEDS ORDERED: AZIT250T12 PO (18:57)
--- NOTE | 2019-12-15 19:04 | NUR ---
REPORT FROM KARLEY OLIVER
[2019-12-15 19:33] VITALS: BP 144/79
--- NOTE | 2019-12-15 19:33 | NUR ---
PT DISCHARGED TO HOME W/ INSTR. PT TO TAKE MEDS PRESCRIBED, F/U W/ PCP ET RETURN IF SYMPTOMS CHANGE OR GET WORSE. UNDERSTANDING VOICED.
[2019-12-16] MEDS ORDERED: AZIT250T12 PO (06:26)
[2019-12-16] MEDS ORDERED: NITR0.4T39 SL (06:26)
== END 2019-12-15 19:33 | disposition home or self-care (01) ==
LOC: EDUNIT# 13:34 → ER 13:34
DX: R07.9 Chest pain, unspecified (principal); R06.00 Dyspnea, unspecified; R91.8 Other nonspecific abnormal finding of lung field; E66.9 Obesity, unspecified; E11.9 Type 2 diabetes mellitus without complications; I10 Essential (primary) hypertension; Z68.41 Body mass index [BMI] 40.0-44.9, adult; Z20.828 Contact with and (suspected) exposure to other viral communicable diseases; Z88.2 Allergy status to sulfonamides; Z88.1 Allergy status to other antibiotic agents; Z79.84 Long term (current) use of oral hypoglycemic drugs; Z79.82 Long term (current) use of aspirin
CPT/HCPCS: 71045; 71275; 80053; 83615; 83735; 83874; 83880; 84484; 85025; 85379; 85610; 85730; 86141; 87804; 93041; 99284; U0002; 36415; 87635

== ENCOUNTER 2020-07-07 12:18 | Outpatient (RCR) | payer BC ==
[~2020-07-07 12:18] MED LIST changes: +AZIT250T12 PO; +NITR0.4T39 SL
--- NOTE | 2020-07-11 12:48 | Diagnostic Imaging Report ---
INDICATION: Rectal tenesmus, abdominal pain, bowel motility. COMPARISON: 06/02/2018 TECHNIQUE: 7 radiographs of abdomen are obtained. Initial imaging was performed immediately after the patient ingested Sitz markers. Subsequently, imaging of the abdomen was performed on day 3 and day 5. FINDINGS: Surgical clips are present within the right upper quadrant of abdomen. Calcifications overlying the abdomen and pelvis bilaterally are again identified, appearing similar to prior exam from 2019 and felt to relate to phleboliths. Nonobstructive bowel gas pattern. No acute osseous abnormality. On day 3, the majority of the Sitz markers are identified within the periphery of the abdomen, greatest within the far lateral left abdomen. On day 5 no retained Sitz markers are identified. No free air. Scattered osseous degenerative changes without acute osseous abnormality. IMPRESSION: Normal bowel motility with no Sitz markers remaining on day 5. No evidence of bowel obstruction or free air. Dictated by: Dictated on workstation # [id number]
[2020-07-16 15:36] LABS: MISC LAB TEST & RESULT SEE FOOTNOTE
== END 2020-10-05 | disposition home or self-care (01) ==
LOC: RAD 12:18 → EDSTATUS 12:18
PROVIDERS: ATTEND Internal Medicine Gastroenterology
DX: K76.9 Liver disease, unspecified (principal); K59.09 Other constipation; R79.9 Abnormal finding of blood chemistry, unspecified; Z86.010 Personal history of colon polyps
CPT/HCPCS: 36415; 74250; 85652; 86141

== ENCOUNTER → 2020-10-08 | Outpatient (CLI) | payer BC ==
[~2020-10-08] VITALS: Ht 162 cm; Wt 104.0 kg
[~2020-10-08] MED LIST changes: +REGADENOSON 0.4 MG/5 ML SYR (LEXISCAN) IV ONE
[2020-10-08] MEDS: CATHETER FLUSH 10 ML SYR IV PRN ×2 (11:29→13:23)
[2020-10-08 13:18] VITALS: BP 128/67
--- NOTE | 2020-10-08 14:48 | Cardiology Stress Test Report ---
Stress Test Report Date of Procedure/Referring: Date of Procedure: Oct 08, 2020 PCP Yareli Gale MD Admitting Physician Chase Larson DO Indications: HTN Baseline Heart Rate: 79 Baseline Blood Pressure: Blood Pressure Systolic: 128 Blood Pressure Diastolic: 67 Baseline Vitals Vital Signs Date Time Temp Pulse Resp B/P (MAP) Pulse Ox O2 Delivery O2 Flow Rate FiO2 10/08/20 13:18 62 16 128/67 (87) 96 Room Air Baseline EKG: Baseline EKG: NSR Summary After explaining the procedure to the patient, she signed a consent and then brought to the stress nuclear laboratory. Patient received 0.4 mg Lexiscan for stress test, ECG, heart rate and blood pressure were monitored continuously. Resting and stress dose of radio tracer were injected, imaging was acquired and reviewed in short axis, horizontal long axis and vertical long axis views. TID: 1.11 SSS: 6 SDS: 3 EF: 63 1. Patient tolerated Lexiscan well 2. Extracardiac attenuation with increased gastric uptake with mild reversible ischemia involving the basal to mid inferior lateral wall that could be secondary to the extracardiac attenuation 3. Normal left ventricular size, EF 63% YARELI GALE MD Oct 08, 2020 14:48
== END ==
LOC: CARD 11:00
PROVIDERS: ATTEND Internal Medicine Cardiovascular Disease
DX: I10 Essential (primary) hypertension (principal); I25.10 Atherosclerotic heart disease of native coronary artery without angina pectoris
CPT/HCPCS: 78452; 93017; 93306; A9502

== ENCOUNTER 2020-10-15 08:00 | Day surgery (SDC) | payer BC ==
[2020-10-15] VITALS (10 sets, daily range): BP systolic 96–135; BP diastolic 59–98
[~2020-10-15] VITALS: Ht 162.6 cm; Wt 111.6 kg
[2020-10-15 07:23] LABS: HEMATOCRIT 44 % (35-52); HEMOGLOBIN 14.4 g/dL (11.5-16.0); MEAN CORPUSCULAR HEMOGLOBIN 29 pg (25-34); MEAN CORPUSCULAR HGB CONC 33 g/dL (32-36); MEAN CORPUSCULAR VOLUME 89 fL (80-99); MEAN PLATELET VOLUME 9.8 fL (9.0-12.2); PLATELET COUNT 341 10^3/uL (130-400); WHITE BLOOD COUNT 6.5 10^3/uL (4.3-11.0)
[2020-10-15 07:36] LABS: ALBUMIN 4.5 GM/DL (3.2-4.5); POTASSIUM 3.5 MMOL/L (3.6-5.0)
[2020-10-15 07:37] LABS: CALCIUM 10.3 MG/DL (8.5-10.1)
[2020-10-15 07:38] LABS: TOTAL PROTEIN 7.7 GM/DL (6.4-8.2)
[2020-10-15 07:40] LABS: BILIRUBIN,TOTAL 0.9 MG/DL (0.1-1.0)
[2020-10-15 07:42] LABS: CREATININE SERUM 1.07 MG/DL (0.60-1.30)
[2020-10-15 07:45] LABS: INR 0.9 (0.8-1.4); PROTHROMBIN TIME PATIENT 12.2 SEC (12.2-14.7)
--- NOTE | 2020-10-15 07:48 | Diagnostic Imaging Report ---
EXAMINATION: Chest 1 view HISTORY: ABN STRESS TEST, CP, HTN, SOB COMPARISON: 12/15/2019 FINDINGS: Heart size and pulmonary vasculature are normal. The lungs are clear without consolidation, pleural effusion, or pneumothorax. The osseous structures are intact. Cervical fusion hardware is present. IMPRESSION: 1. No acute radiographic abnormality in the chest. Dictated by: Dictated on workstation # [id number]
[~2020-10-15 08:00] MED LIST changes: +ACET325T38 PO; +ATOR10TA66 PO; +ESTR-141 TP; +HEParin (CATH LAB) 2,000 ML IV ONE; +HEParin 1000 UNIT/ML (10ML VIAL) FOR BOLUS ONE; +LIDOCAINE 1% INJ 20 ML 20 ML VIAL ONE; +LIRA0.6P INJ; +MELO15TA39 PO; +MIDAZOLAM 5 MG/5 ML (VERSED) VIAL ONE; +MULT-1136 PO; +NITRO DRIP 25000 MCG/D5W 250 ML IV ONE; +NS IV 1000 ML 1,000 ML IV SCH; +NS IV 1000 ML 1,000 ML ONE; +POTA10TA14 PO; -REGADENOSON 0.4 MG/5 ML SYR (LEXISCAN) IV ONE; +VENL75CA93 PO; +VERAPAMIL 5 MG/2 ML (CALAN) VIAL IV ONE; +fentaNYL INJ 100 MCG/2 ML AMP ONE
--- NOTE | 2020-10-15 08:46 | Conscious Sedation/ASA ---
Conscious Sedation Pre-Proced Time 08:46 ASA Score 3 For ASA 3 and 4: Consider anesthesia and medical clearance. Also, for patients with a history of failed moderate sedation consider anesthesia. Airway Lungs Heart ASA score ASA 1: a normal healthy patient ASA 2: a patient with a mild systemic disease (mid diabetes, controlled hypertension, obesity x ASA 3: a patient with a severe systemic disease that limits activity (angina, COPD, prior Myocardial infarction) ASA 4: a patient with an incapacitating disease that is a constant threat to life (CHF, renal failure) ASA 5: a moribund patient not expected to survive 24 hrs. (ruptured aneurysm) ASA 6: a declared brain- patient whose organs are being harvested. For emergent operations, add the letter E after the classification Mallampati Classification Grade 3 Sedation Plan Analgesia, Amnesia, Plan communicated to team members, Discussed options with patient/fam, Discussed risks with patient/fam The patient is an appropriate candidate to undergo the planned procedure, sedation, and anesthesia. The patient immediately re-assessed prior to indication. YARELI JIN MD Oct 15, 2020 08:46
[2020-10-15] MEDS ORDERED: meTOprolol 5 MG/5 ML (LOPRESSOR) VIAL ONE (09:12)
[2020-10-15] MEDS ORDERED: NS IV 1000 ML 1,000 ML IV SCH (09:30)
--- NOTE | 2020-10-15 09:30 | Discharge Inst-Post CATH ---
Discharge Inst-CATH/EP Problems Reviewed?: Yes Post Cardiac Cath/EP D/C Inst Follow Up/Plan Appointment with Dr. Gale in 2 to 4 weeks <b>CARDIAC CATH/EP PROCEDURE DISCHARGE INSTRUCTIONS</b> ACTIVITY * Go Home directly and rest. * Limit activity of the leg (or wrist if it was used) for 7 days including aerobics, swimming, jogging, bicycling, etc. * Restrict stair-climbing for 7 days if possible, if not, climb up with your non-cath leg, then bring together on the same step. * Avoid lifting, pushing, pulling or excessive movement of the affected extremity for 7 days. * Customary sexual activity may be resumed after 2 days-use caution not to use a position that strains or causes pain to the affected extremity. * No driving for 24 hours. * NO SMOKING. * Avoid straining for bowel movements for 7 days. * Gentle walking on level ground is allowed. * Returning to work will depend on the type of procedure and the results. Your doctor will discuss this with you. CALL YOUR DOCTOR FOR ANY OF THE FOLLOWING: *If bleeding from the puncture site occurs- Apply gentle pressure to site with clean cloth and call your doctor or EMS. * If a knot or lump forms under the skin, increases in size, or causes pain. * If bruising appears to be worsening or moving further down your leg instead of disappearing. * Temperature above 101 F. CARE OF YOUR GROIN INCISION; * Bruising or purple discoloration of the skin near the puncture site is common. * You may shower only, no bathtub bathing for 5 days. Be careful to avoid slipping as your leg may feel stiff. * If a closure device was used on your femoral artery, please see the attached guide regarding care of the device and your leg. * Leave dressing on FOR 24 hours. CARE OF YOUR WRIST INCISION; * Bruising or purple discoloration of the skin near the puncture site is common. * You may shower. * DO NOT submerge wrist. * Leave dressing on FOR 24 hours. YARELI GALE MD Oct 15, 2020 09:30
--- NOTE | 2020-10-15 09:41 | Cardiac Cath Report ---
Cardiac Cath Report Physician (s)/Janitorial Account Manager (s) Physician YARELI JIN MD Pre-Procedure Diagnosis Pre-Procedure Diagnosis: Chest pain, coronary artery disease Post-Procedure Note Procedure Start Date: Oct 15, 2020 Name of Procedure: Left heart catheterization Findings/Procedure Note PROCEDURE NOTE: 60-year-old lady with history of hypertension, hyperlipidemia, had an abnormal stress test, has been having chest pain, scheduled for cardiac catheterization possible PTCA. After explaining the procedure to the patient, all pros and cons were explained, all questions were answered. The patient signed the consent and then she was placed on the cardiac catheterization laboratory. Groin was prepped SL fashion local anesthesia was used. Sheath placed in the right radial artery, [place] catheter was advanced to the left ventricular cavity, pressure was measured, pullback LV to aorta was done, due to the anatomy of her aorta I was unable to intubate the left system with the [place] catheter after multiple attempts I switched the catheter and used 5 Trin[place] JL catheter and intubated the left system and angiogram was done then exchanged over a long J-wire and used 5 [place] JR catheter intubating the right coronary system and angiogram was done. At the end of the procedure the sheath was removed. Vascular band deployed FINDINGS: Hemodynamics LV 125/10, end-diastolic pressure of 10 Aorta 118/84 mean of 97 ANATOMY: Left Main is free of obstructive disease Left Anterior Descending is moderate in size, slightly slower flow distally due to small vessel disease nonobstructive disease Left Circumflex is moderate in size with no obstructive disease Ramus intermedius has no significant obstructive disease Right Coronary Artery is dominant artery slightly tortuous with slow flow due to small vessel disease LV Gram was not done, pressure was measured CONCLUSION: 1. Small vessel disease with slow flow in the LAD and right coronary artery, slightly tortuous right coronary artery with no significant obstructive disease 2. Normal left ventricular end-diastolic pressure DISCUSSION AND RECOMMENDATION: Medical therapy is recommended no intervention is warranted Anesthesia Type: Conscious Sedation Estimated blood loss (mL): 15 ml Contrast Amount: 31 ml Total Radiation Dose: 582 mGy Post-Procedure Diagnosis Post-operative diagnosis: Chest pain Coronary artery disease Hypertension Hyperlipidemia YARELI JIN MD Oct 15, 2020 09:41
== END 2020-10-15 12:10 ==
LOC: CATH 08:00 → SDC 10:28 → CATH 12:10
PROVIDERS: ATTEND Internal Medicine Cardiovascular Disease
DX: I25.10 Atherosclerotic heart disease of native coronary artery without angina pectoris (principal); I10 Essential (primary) hypertension; I34.0 Nonrheumatic mitral (valve) insufficiency; I65.29 Occlusion and stenosis of unspecified carotid artery; G47.33 Obstructive sleep apnea (adult) (pediatric); E66.01 Morbid (severe) obesity due to excess calories; E11.9 Type 2 diabetes mellitus without complications; E78.5 Hyperlipidemia, unspecified; Z79.82 Long term (current) use of aspirin; Z79.899 Other long term (current) drug therapy; Z68.41 Body mass index [BMI] 40.0-44.9, adult; Z83.3 Family history of diabetes mellitus
CPT/HCPCS: 71045; 80053; 80061; 85027; 85610; 85730; 87081; 93458; C1894; 36415

== ENCOUNTER 2021-02-11 14:07 | Emergency (ER) | payer BC ==
[~2021-02-11] VITALS: Ht 162 cm; Wt 104.0 kg
[~2021-02-11 14:07] MED LIST changes: +CYCL10TA25 PO; -CYCL10TA9 PO; -HEParin (CATH LAB) 2,000 ML IV ONE; -HEParin 1000 UNIT/ML (10ML VIAL) FOR BOLUS ONE; -LIDOCAINE 1% INJ 20 ML 20 ML VIAL ONE; -MIDAZOLAM 5 MG/5 ML (VERSED) VIAL ONE; -NITRO DRIP 25000 MCG/D5W 250 ML IV ONE; -NS IV 1000 ML 1,000 ML IV SCH; -NS IV 1000 ML 1,000 ML ONE; +POTA-164 PO; +POTA-179 PO; -POTA10TA14 PO; -POTA20TA15 PO; -VERAPAMIL 5 MG/2 ML (CALAN) VIAL IV ONE; -fentaNYL INJ 100 MCG/2 ML AMP ONE
[2021-02-11 15:28] LABS: BILIRUBIN,URINE NEGATIVE (NEGATIVE); CLARITY,URINE CLEAR; COLOR,URINE YELLOW; GLUCOSE, URINE (UA) TRACE (NEGATIVE); KETONES,URINE NEGATIVE (NEGATIVE); LEUKOCYTE ESTERASE ,URINE NEGATIVE (NEGATIVE); NITRITE,URINE NEGATIVE (NEGATIVE); PROTEIN,URINE NEGATIVE (NEGATIVE)
[2021-02-11 15:34] LABS: BACTERIA,URINE NEGATIVE /HPF
--- NOTE | 2021-02-11 15:55 | ED Respiratory ---
General Chief Complaint: General Problems/Pain Stated Complaint: DOUBLE PNEUMONIA Nursing Triage Note: PT TO ER FROM [facility] WITH C/O GEN SICKNESS AND FEELING BAD. PT SAID SYMPTOMS STARTED ON TUESDAY WITH PAIN, CONGESTION, AN DRY COUGH. THEN IT TURNED INTO A FEVER AND SORE THROAT. PT SAID AT [facility] THEY TOLD HER SHE HAD DOUBLE PNEUMONIA TODAY (ABDOUL RANGEL) History of Present Illness Date Seen by Provider: Feb 11, 2021 Time Seen by Provider: 15:10 Initial Comments 60-year-old female reports respiratory congestion, malaise and fevers since 02/09/2020. She was evaluated at urgent care, told she had double pneumonia, she wanted referred here for treatment. She is diabetic, she hasn't checked her glucose today and poor appetite. Denies N/V/D at this time. Temp 102 this am. She was tested for COVID and Flu, today at Urgent Care. Both were Negative. Timing/Duration: getting worse Prior Episodes/Possible Cause: occasional episodes Associated Symptoms: cough, fever/chills, muscle aches, nasal congestion, shortness of breath (ABDOUL RANGEL) Allergies and Home Medications Allergies Coded Allergies: sulfamethoxazole (Verified Allergy, Severe, 02/03/16) trimethoprim (Verified Allergy, Severe, 02/03/16) Patient Home Medication List Home Medication List Reviewed: Yes (ABDOUL RANGEL) Acetaminophen (Tylenol) 325 Mg Tablet, 650 MG PO Q6H PRN for PAIN-MILD (1-4), (Reported) Entered as Reported by: ТАТЬЯНА INMAN on 10/15/20 0756 Alprazolam (Alprazolam) 1 Mg Tablet, 1 MG PO HS, (Reported) Entered as Reported by: RIYA MONTANEZ on 02/03/16 1558 Ascorbate Calcium (Vitamin C) 500 Mg Tablet, 500 MG PO BID, (Reported) Entered as Reported by: RIYA MONTANEZ on 02/03/16 155 Aspirin (Aspirin EC) 81 Mg Tablet.dr, 81 MG PO DAILY, (Reported) Entered as Reported by: RIYA MONTANEZ on 02/03/16 1603 Atorvastatin Calcium (Atorvastatin Calcium) 10 Mg Tablet, 10 MG PO HS, (Reported) Entered as Reported by: ТАТЬЯНА INMAN on 10/15/20 075 Estradiol (Radha) 1 Each Patch.tdsw, 1 PATCH TP TUESDAY, (Reported) Entered as Reported by: ТАТЬЯНА INMAN on 10/15/20755 Furosemide (Furosemide) 40 Mg Tablet, 40 MG PO BID, (Reported) Entered as Reported by: RIYA MONTANEZ on 02/03/161557 Liraglutide (Victoza 2-Jem) 0.6 Mg/0.1 Ml Pen.injctr, 1.2 MG INJ DAILY, (Reported) Entered as Reported by: ТАТЬЯНА INMAN on 10/15/20755 Meloxicam (Meloxicam) 15 Mg Tablet, 15 MG PO HS, (Reported) Entered as Reported by: ТАТЬЯНА INMAN on 10/15/20755 Multivitamin (Multivitamin) 1 Each Tablet, 1 EACH PO DAILY, (Reported) Entered as Reported by: ТАТЬЯНА INMAN on 10/15/20755 Pantoprazole Sodium (Pantoprazole Sodium) 40 Mg Tablet.dr, 40 MG PO DAILY, (Reported) Entered as Reported by: RIYA MONTANEZ on 02/03/161557 Potassium Chloride (Klor-Con M10) 10 Meq Tab.er.prt, 20 MEQ PO BID, (Reported) Entered as Reported by: ТАТЬЯНА INMAN on 10/15/20755 Venlafaxine HCl (Venlafaxine HCl ER) 75 Mg Cap.er.24h, 75 MG PO HS, (Reported) Entered as Reported by: ТАТЬЯНА INMAN on 10/15/20755 Review of Systems Review of Systems Constitutional: see HPI, fever, malaise, weakness EENTM: see HPI, no symptoms reported Respiratory: see HPI, cough, short of breath Cardiovascular: no symptoms reported, see HPI Gastrointestinal: no symptoms reported, see HPI (ABDOUL RANGEL) All Other Systems Reviewed Negative Unless Noted: Yes (ABDOUL RANGEL) Past Sxzhytf-Pquptg-Zporqa Hx Patient Social History Tobacco Use?: No Use of E-Cig and/or Vaping dev: No Substance use?: No Alcohol Use?: No Pt feels they are or have been: No (ABDOUL RANGEL) Immunizations Up To Date Tetanus Booster (TDap): More than 5yrs Influenza Vaccine Up-to-Date: Yes; Up-to-Date First/Initial COVID19 Vaccinat: 06/2020 Second COVID19 Vaccination Avery: 07/2020 COVID19 Vaccine 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: GABO (ABDOUL RANGEL) Seasonal Allergies Seasonal Allergies: No (ABDOUL RANGEL) Past Medical History Surgeries: Yes (CERVICAL NECK SURGERY 2014, BUNION REMOVED,) Appendectomy, Gallbladder, Hysterectomy, Orthopedic, Tonsillectomy Respiratory: No Sleep Apnea Currently Using CPAP: Yes Cardiac: Yes Coronary Artery Disease, High Cholesterol, Hypertension Neurological: No Reproductive Disorders: No 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 8.0oz. 98.991985tx; 39.00 BMI Method:Stated General Appearance: WD/WN, no apparent distress Eyes: Bilateral Eye Normal Inspection, Bilateral Eye PERRL, Bilateral Eye EOMI HEENT: PERRL/EOMI, normal ENT inspection, TMs normal, pharynx normal Neck: non-tender, full range of motion, supple, normal inspection Respiratory: chest non-tender, lungs clear, normal breath sounds, no respiratory distress Cardiovascular: normal peripheral pulses, regular rate, rhythm Gastrointestinal: normal bowel sounds, non tender, soft Extremities: normal range of motion, non-tender, normal inspection, no calf tenderness, normal capillary refill Neurologic/Psychiatric: no motor/sensory deficits, alert, normal mood/affect, oriented x 3 Skin: normal color, warm/dry (ABDOUL RANGEL) Progress/Results/Core Measures Suspected Sepsis SIRS Temperature: Pulse: 77 Respiratory Rate: 16 Laboratory Tests 02/11/21 16:03: White Blood Count 5.3 Blood Pressure 168 /96 Mean: 120 Laboratory Tests 02/11/21 16:03: Creatinine 0.88, INR Comment 0.9, Platelet Count 309, Total Bilirubin 0.5 (CLAIREABDOUL MANDA) Results/Orders Lab Results Laboratory Tests Test 02/11/21 15:00 02/11/21 15:45 02/11/21 16:03 02/11/21 17:08 Range/Units Urine Color YELLOW Urine Clarity CLEAR Urine pH 7.0 5-9 Urine Specific Marshall 1.015 L 1.016-1.022 Urine Protein NEGATIVE NEGATIVE Urine Glucose (UA) TRACE H NEGATIVE Urine Ketones NEGATIVE NEGATIVE Urine Nitrite NEGATIVE NEGATIVE Urine Bilirubin NEGATIVE NEGATIVE Urine Urobilinogen 0.2 < = 1.0 MG/DL Urine Leukocyte Esterase NEGATIVE NEGATIVE Urine RBC (Auto) NEGATIVE NEGATIVE Urine RBC NONE /HPF Urine WBC NONE /HPF Urine Squamous Epithelial Cells 10-25 H /HPF Urine Crystals NONE /LPF Urine Bacteria NEGATIVE /HPF Urine Casts NONE /LPF Urine Mucus NEGATIVE /LPF Urine Culture Indicated NO Glucometer 86 70-110 MG/DL White Blood Count 5.3 4.3-11.0 10^3/uL Red Blood Count 4.51 3.80-5.11 10^6/uL Hemoglobin 13.2 11.5-16.0 g/dL Hematocrit 40 35-52 % Mean Corpuscular Volume 89 80-99 fL Mean Corpuscular Hemoglobin 29 25-34 pg Mean Corpuscular Hemoglobin Concent 33 32-36 g/dL Red Cell Distribution Width 14.1 10.0-14.5 % Platelet Count 309 130-400 10^3/uL Mean Platelet Volume 9.9 9.0-12.2 fL Immature Granulocyte % (Auto) 0 % Neutrophils (%) (Auto) 48 42-75 % Lymphocytes (%) (Auto) 42 12-44 % Monocytes (%) (Auto) 8 0-12 % Eosinophils (%) (Auto) 2 0-10 % Basophils (%) (Auto) 1 0-10 % Neutrophils # (Auto) 2.5 1.8-7.8 10^3/uL Lymphocytes # (Auto) 2.2 1.0-4.0 10^3/uL Monocytes # (Auto) 0.4 0.0-1.0 10^3/uL Eosinophils # (Auto) 0.1 0.0-0.3 10^3/uL Basophils # (Auto) 0.1 0.0-0.1 10^3/uL Immature Granulocyte # (Auto) 0.0 0.0-0.1 10^3/uL Prothrombin Time 12.9 12.2-14.7 SEC INR Comment 0.9 0.8-1.4 Activated Partial Thromboplast Time 26 24-35 SEC Sodium Level 144 135-145 MMOL/L Potassium Level 3.7 3.6-5.0 MMOL/L Chloride Level 109 H 98-107 MMOL/L Carbon Dioxide Level 25 21-32 MMOL/L Anion Gap 10 5-14 MMOL/L Blood Urea Nitrogen 13 7-18 MG/DL Creatinine 0.88 0.60-1.30 MG/DL Estimat Glomerular Filtration Rate 66 BUN/Creatinine Ratio 15 Glucose Level 87 70-105 MG/DL Calcium Level 9.4 8.5-10.1 MG/DL Corrected Calcium 9.3 8.5-10.1 MG/DL Total Bilirubin 0.5 0.1-1.0 MG/DL Aspartate Amino Transf (AST/SGOT) 24 5-34 U/L Alanine Aminotransferase (ALT/SGPT) 27 0-55 U/L Alkaline Phosphatase 92 40-136 U/L C-Reactive Protein High Sensitivity 0.26 0.00-0.50 MG/DL Total Protein 6.9 6.4-8.2 GM/DL Albumin 4.1 3.2-4.5 GM/DL Influenza Type A (RT-PCR) Not Detected Not Detecte Influenza Type B (RT-PCR) Not Detected Not Detecte SARS-CoV-2 RNA (RT-PCR) Not Detected Not Detecte (LATOSHA GROSS MD) Vital Signs/I&O 02/11/21 02/11/21 14:53 18:00 Temp 36.6 36.6 Pulse 77 86 Resp 16 16 B/P (MAP) 168/96 (120) 138/77 Pulse Ox 98 100 O2 Delivery Room Air Room Air (LATOSHA GROSS MD) Vital Signs/I&O Capillary Refill : (ABDOUL RANGEL) Blood Pressure Mean: 120 Point of Care Testing Finger Stick Blood Glucose: 86 (ABDOUL RANGEL) Progress Note : Time: 15:10 Progress Note patient seen and evaluated, will check labs and repeat Chest xray. 1600 CXR here negative for pneumonia. spoke to PA at [facility], the COVID and Flu test are antigen based. Discussed with patient, can repeat with our PCR here. She is requesting this. NS 1 L per IV. 1700 COVID and Flu negative. Discussed with patient. She may have a viral URI but all labs and chest xray are negative. Conservative treatment and follow up with PCP. Discharge instructions and return precautions reviewed. (ABDOUL RANGEL) Diagnostic Imaging Diagonstic Imaging: Xray Plain Films/CT/US/NM/MRI: chest Comments NAME: SUZETTE CHOW [facility] REC#: [id number] PT STATUS: REG ER : 1960 PHYSICIAN: ABDOUL RANGEL ADMIT DATE: 02/11/21/ER Draft Date of Exam:02/11/21 CHEST 1 VIEW, AP/PA ONLY INDICATION: Fatigue, cough. COMPARISON: 10/15/2020. EXAMINATION: Single view of the chest. FINDINGS: Clear lungs, bilaterally. The heart is normal. There is no pneumothorax but osseous structures are normal. IMPRESSION: Negative chest. Dictated on workstation # [id number] Dict: 02/11/21 1609 Trans: 02/11/21 1611 [facility] [phone] Interpreted by: KEYANNA HO Electronically signed by: (ABDOUL RANGEL) Departure Impression Primary Impression: General symptom Additional Impressions: Myalgia Cough Disposition: 01 HOME, SELF-CARE Condition: Improved Departure-Patient Inst. Decision time for Depature: 17:30 (ABDOUL RANGEL) Referrals: KRISTEN PAREDES DO (PCP/Family) Primary Care Physician Patient Instructions: Cough, Adult (DC), Fatigue (DC) Add. Discharge Instructions: Continue home medications as prescribed. Alternate between Tylenol 650 mg and ibuprofen 600 mg every 4 hours for pain or fever. Increase water intake, 16 ounces every 2 hours while awake. Take an immune multivitamin that includes zinc, vitamin C and vitamin D. Increase ambulation, 5 to 10 minutes every hour while awake. Eat small frequent meals. Follow-up with your primary care provider tomorrow if your symptoms are not improving or worsen. Return to the emergency department for new, urgent healthcare needs. All discharge instructions reviewed with patient and/or family. Voiced understanding. ATTENDING PHYSICIAN NOTE: I was physically present as attending physician in the emergency department during the care of this patient, but I was not directly involved in the decision making or delivery of care for this patient. (LATOSHA GORSS MD) Copy Copies To 1: KRISTEN PAREDES AMY ARNP Feb 11, 2021 15:54 LATOSHA GROSS MD Feb 11, 2021 21:13
--- NOTE | 2021-02-11 16:11 | Diagnostic Imaging Report ---
INDICATION: Fatigue, cough. COMPARISON: 10/15/2020. EXAMINATION: Single view of the chest. FINDINGS: Clear lungs, bilaterally. The heart is normal. There is no pneumothorax but osseous structures are normal. IMPRESSION: Negative chest. Dictated by: Dictated on workstation # [id number]
[2021-02-11 16:12] LABS: BASOPHILS # (AUTO) 0.1 10^3/uL (0.0-0.1); BASOPHILS % (AUTO) 1 % (0-10); EOSINOPHILS # (AUTO) 0.1 10^3/uL (0.0-0.3); EOSINOPHILS % (AUTO) 2 % (0-10); HEMATOCRIT 40 % (35-52); HEMOGLOBIN 13.2 g/dL (11.5-16.0); LYMPHOCYTES # (AUTO) 2.2 10^3/uL (1.0-4.0); LYMPHOCYTES % (AUTO) 42 % (12-44); MEAN CORPUSCULAR HEMOGLOBIN 29 pg (25-34); MEAN CORPUSCULAR HGB CONC 33 g/dL (32-36); MEAN CORPUSCULAR VOLUME 89 fL (80-99); MEAN PLATELET VOLUME 9.9 fL (9.0-12.2); MONOCYTES # (AUTO) 0.4 10^3/uL (0.0-1.0); MONOCYTES % (AUTO) 8 % (0-12); NEUTROPHILS # (AUTO) 2.5 10^3/uL (1.8-7.8); NEUTROPHILS % (AUTO) 48 % (42-75); PLATELET COUNT 309 10^3/uL (130-400); WHITE BLOOD COUNT 5.3 10^3/uL (4.3-11.0)
[2021-02-11 16:21] LABS: ALBUMIN 4.1 GM/DL (3.2-4.5)
[2021-02-11 16:22] LABS: POTASSIUM 3.7 MMOL/L (3.6-5.0)
[2021-02-11 16:23] LABS: CALCIUM 9.4 MG/DL (8.5-10.1)
[2021-02-11 16:24] LABS: TOTAL PROTEIN 6.9 GM/DL (6.4-8.2)
[2021-02-11 16:25] LABS: INR 0.9 (0.8-1.4); PROTHROMBIN TIME PATIENT 12.9 SEC (12.2-14.7)
[2021-02-11 16:26] LABS: BILIRUBIN,TOTAL 0.5 MG/DL (0.1-1.0)
[2021-02-11 16:28] LABS: CREATININE SERUM 0.88 MG/DL (0.60-1.30)
[2021-02-11 18:00] VITALS: BP 138/77
== END 2021-02-11 18:02 | disposition home or self-care (01) ==
LOC: EDUNIT# 14:07 → ER 14:09
DX: M79.10 Myalgia, unspecified site (principal); R05.9 Cough, unspecified; G47.30 Sleep apnea, unspecified; I10 Essential (primary) hypertension; I25.10 Atherosclerotic heart disease of native coronary artery without angina pectoris; E78.00 Pure hypercholesterolemia, unspecified; E11.9 Type 2 diabetes mellitus without complications; Z20.822 Contact with and (suspected) exposure to COVID-19; Z79.82 Long term (current) use of aspirin; Z79.899 Other long term (current) drug therapy
CPT/HCPCS: 36415; 71045; 80053; 81000; 82947; 85025; 85610; 85730; 86141; 87636

== ENCOUNTER → 2021-06-18 | Outpatient (CLI) | payer OTHER ==
[~2021-06-18] VITALS: Ht 162.5 cm; Wt 109.1 kg
[~2021-06-18] MED LIST changes: +ACETAMINOPHEN 500 MG TAB (TYLENOL) PO PRN; +BEBTELOVIMAB 175 MG/2 ML VIAL IV ONE; +EPINEPHrine INJECTION 1 MG/ML AMP IM PRN; +ONDANSETRON 4 MG/2 ML (SDV) Z0FRAN IV PRN; +diphenhydrAMINE 50 MG/ML INJ (BENADRYL) IV PRN
[2021-06-18 09:10] VITALS: BP 128/74
[2021-06-18 09:24] VITALS: BP 128/74
[2021-06-18 10:43] VITALS: BP 130/77
== END ==
LOC: INFUSION 08:57
PROVIDERS: ATTEND Family Medicine
DX: U07.1 COVID-19 (principal)

== ENCOUNTER → 2021-09-29 | Outpatient (CLI) | payer OTHER ==
[~2021-09-29] MED LIST changes: -ACETAMINOPHEN 500 MG TAB (TYLENOL) PO PRN; +ACHD5005 PO; -BEBTELOVIMAB 175 MG/2 ML VIAL IV ONE; -EPINEPHrine INJECTION 1 MG/ML AMP IM PRN; -ONDANSETRON 4 MG/2 ML (SDV) Z0FRAN IV PRN; -diphenhydrAMINE 50 MG/ML INJ (BENADRYL) IV PRN
== END ==
LOC: RAD 13:14
PROVIDERS: ATTEND Internal Medicine
DX: M54.9 Dorsalgia, unspecified (principal)

== ENCOUNTER 2021-10-01 13:23 | Emergency (ER) | payer OTHER ==
[~2021-10-01] VITALS: Ht 162 cm; Wt 108.0 kg
[~2021-10-01 13:23] MED LIST changes: -ACHD5005 PO
[2021-10-01] MEDS ORDERED: fentaNYL INJ 100 MCG/2 ML AMP IVP STA (14:42)
--- NOTE | 2021-10-01 14:42 | ED Back Pain ---
General Chief Complaint: Back Problems Stated Complaint: SEVERE RLQ PAIN Nursing Triage Note: Pt c/o R flank pain x3 weeks. Patient had urinalysis done by PCP which was clear. Patient reports pain continues to worsen. Pain in R flank radiating across abdomen. Pt denies n/v/d. Source of Information: Patient Exam Limitations: No Limitations History of Present Illness Date Seen by Provider: Oct 01, 2021 Time Seen by Provider: 14:39 Initial Comments Patient is a 61-year-old female who presents ED with right lower back pain. Pain started 3-1/2 weeks ago. Denies of any trauma. Describes sharp constant hurts daily worse with movement. Rating pain to the right lower quadrant and right upper quadrant. History of kidney stones states this feels somewhat different. She denies any nausea vomiting diarrhea. No urinary symptoms. No radiating pain in the lower extremity or weakness. She did take Ultram about a week ago for 3 days but states the medication made her sleepy. She went to her primary care physician and was recommended Flexeril this week but that has not i mproved. She denies of any chest pain, cough, shortness of breath, fever, chills. History of appendectomy, hysterectomy and cholecystectomy. She states she had a negative urinalysis on Tuesday Allergies and Home Medications Allergies Coded Allergies: sulfamethoxazole (Verified Allergy, Severe, 02/03/16) trimethoprim (Verified Allergy, Severe, 02/03/16) Patient Home Medication List Home Medication List Reviewed: Yes Acetaminophen (Tylenol) 325 Mg Tablet, 650 MG PO Q6H PRN for PAIN-MILD (1-4), (Reported) Entered as Reported by: ТАТЬЯНА INMAN on 10/15/20 0756 Alprazolam (Alprazolam) 1 Mg Tablet, 1 MG PO HS, (Reported) Entered as Reported by: RIYA MONTANEZ on 02/03/16 1558 Ascorbate Calcium (Vitamin C) 500 Mg Tablet, 500 MG PO BID, (Reported) Entered as Reported by: RIYA MONTANEZ on 02/03/16 1558 Aspirin (Aspirin EC) 81 Mg Tablet.dr, 81 MG PO DAILY, (Reported) Entered as Reported by: RIYA MONTANEZ on 02/03/16 1603 Atorvastatin Calcium (Atorvastatin Calcium) 10 Mg Tablet, 10 MG PO HS, (Reported) Entered as Reported by: ТАТЬЯНА IMNAN on 10/15/20755 Estradiol (Radha) 1 Each Patch.tdsw, 1 PATCH TP TUESDAY, (Reported) Entered as Reported by: ТАТЬЯНА INMAN on 10/15/20755 Furosemide (Furosemide) 40 Mg Tablet, 40 MG PO BID, (Reported) Entered as Reported by: RIYA MONTANEZ on 02/03/16 155 Hydrocodone/Acetaminophen (Hydrocodone-Acetamin 5-325 mg) 5 Mg-325 Mg Tablet, 1 TAB PO Q4H PRN for PAIN-MODERATE (5-7) Prescribed by: ANA LUGO on 10/01/21 155 Liraglutide (Victoza 2-Jem) 0.6 Mg/0.1 Ml Pen.injctr, 1.2 MG INJ DAILY, (Reported) Entered as Reported by: ТАТЬЯНА INMAN on 10/15/20755 Meloxicam (Meloxicam) 15 Mg Tablet, 15 MG PO HS, (Reported) Entered as Reported by: ТАТЬЯНА INMAN on 10/15/20755 Multivitamin (Multivitamin) 1 Each Tablet, 1 EACH PO DAILY, (Reported) Entered as Reported by: ТАТЬЯНА INMAN on 10/15/20755 Pantoprazole Sodium (Pantoprazole Sodium) 40 Mg Tablet.dr, 40 MG PO DAILY, (Reported) Entered as Reported by: RIYA MONTANEZ on 02/03/16 155 Potassium Chloride (Klor-Con M10) 10 Meq Tab.er.prt, 20 MEQ PO BID, (Reported) Entered as Reported by: ТАТЬЯНА INMAN on 10/15/20755 Venlafaxine HCl (Venlafaxine HCl ER) 75 Mg Cap.er.24h, 75 MG PO HS, (Reported) Entered as Reported by: ТАТЬЯНА INMAN on 10/15/20755 Review of Systems Constitutional: No diaphoresis, No malaise, No weakness EENTM: No ear pain, No blurred vision, No double vision, No hoarseness, No mouth pain Respiratory: No cough Cardiovascular: No chest pain Gastrointestinal: abdominal pain; No diarrhea, No vomiting Genitourinary: No decreased output, No discharge, No dysuria, No frequency Musculoskeletal: back pain; No joint pain Skin: No change in color, No change in hair/nails All Other Systems Reviewed Negative Unless Noted: Yes Past Qppgvma-Tnjoon-Aacnws Hx Patient Social History Tobacco Use?: No Substance use?: No Alcohol Use?: No Immunizations Up To Date Tetanus Booster (TDap): More than 5yrs First/Initial COVID19 Vaccinat: 06/2020 Second COVID19 Vaccination Avery: 07/2020 Third COVID19 Vaccination Date: 12/2020 Seasonal Allergies Seasonal Allergies: No Past Medical History Surgery/Hospitalization HX: type 2 diabetes Surgeries: Yes (CERVICAL NECK SURGERY 2014, BUNION REMOVED,) Appendectomy, Gallbladder, Hysterectomy, Orthopedic, Tonsillectomy Respiratory: No Sleep Apnea Currently Using CPAP: Yes Cardiac: Yes Coronary Artery Disease, High Cholesterol, Hypertension Neurological: No 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 8.0oz. [id number]; 41.00 BMI Method:Stated General Appearance: No Apparent Distress, WD/WN HEENT: PERRL/EOMI, TMs Normal, Normal ENT Inspection Neck: Full Range of Motion, Normal Inspection, Non Tender, Supple Cardiovascular: Regular Rate, Rhythm, No Edema, No Gallop, No JVD Respiratory: Chest Non Tender, Lungs Clear, Normal Breath Sounds Gastrointestinal: Normal Bowel Sounds, No Organomegaly, No Pulsatile Mass, Non Tender, Tenderness (Right upper quadrant tenderness, right lower quadrant) Back: CVA Tenderness (R) Extremity: Normal Capillary Refill, Normal Inspection, Normal Range of Motion, Non Tender Neurologic/Psychiatric: Alert, Oriented x3, No Motor/Sensory Deficits, Normal Mood/Affect, 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 Norm as Tested Skin: Normal Color, Warm/Dry Progress/Results/Core Measures Results/Orders Lab Results Laboratory Tests Test 10/01/21 14:30 Range/Units White Blood Count 7.1 4.3-11.0 10^3/uL Red Blood Count 4.74 3.80-5.11 10^6/uL Hemoglobin 13.4 11.5-16.0 g/dL Hematocrit 42 35-52 % Mean Corpuscular Volume 88 80-99 fL Mean Corpuscular Hemoglobin 28 25-34 pg Mean Corpuscular Hemoglobin Concent 32 32-36 g/dL Red Cell Distribution Width 14.2 10.0-14.5 % Platelet Count 324 130-400 10^3/uL Mean Platelet Volume 9.5 9.0-12.2 fL Immature Granulocyte % (Auto) 0 % Neutrophils (%) (Auto) 62 42-75 % Lymphocytes (%) (Auto) 29 12-44 % Monocytes (%) (Auto) 7 0-12 % Eosinophils (%) (Auto) 2 0-10 % Basophils (%) (Auto) 1 0-10 % Neutrophils # (Auto) 4.4 1.8-7.8 10^3/uL Lymphocytes # (Auto) 2.1 1.0-4.0 10^3/uL Monocytes # (Auto) 0.5 0.0-1.0 10^3/uL Eosinophils # (Auto) 0.1 0.0-0.3 10^3/uL Basophils # (Auto) 0.1 0.0-0.1 10^3/uL Immature Granulocyte # (Auto) 0.0 0.0-0.1 10^3/uL Urine Color YELLOW Urine Clarity CLEAR Urine pH 8.0 5-9 Urine Specific Comstock 1.015 L 1.016-1.022 Urine Protein NEGATIVE NEGATIVE Urine Glucose (UA) NEGATIVE NEGATIVE Urine Ketones NEGATIVE NEGATIVE Urine Nitrite NEGATIVE NEGATIVE Urine Bilirubin NEGATIVE NEGATIVE Urine Urobilinogen 0.2 < = 1.0 MG/DL Urine Leukocyte Esterase NEGATIVE NEGATIVE Urine RBC (Auto) NEGATIVE NEGATIVE Urine RBC NONE /HPF Urine WBC NONE /HPF Urine Squamous Epithelial Cells 2-5 /HPF Urine Crystals NONE /LPF Urine Bacteria NEGATIVE /HPF Urine Casts NONE /LPF Urine Mucus NEGATIVE /LPF Urine Culture Indicated NO Sodium Level 143 135-145 MMOL/L Potassium Level 3.8 3.6-5.0 MMOL/L Chloride Level 105 98-107 MMOL/L Carbon Dioxide Level 27 21-32 MMOL/L Anion Gap 11 5-14 MMOL/L Blood Urea Nitrogen 22 H 7-18 MG/DL Creatinine 1.03 0.60-1.30 MG/DL Estimat Glomerular Filtration Rate 63 BUN/Creatinine Ratio 21 Glucose Level 139 H 70-105 MG/DL Calcium Level 9.8 8.5-10.1 MG/DL Corrected Calcium 9.5 8.5-10.1 MG/DL Total Bilirubin 0.8 0.1-1.0 MG/DL Aspartate Amino Transf (AST/SGOT) 18 5-34 U/L Alanine Aminotransferase (ALT/SGPT) 23 0-55 U/L Alkaline Phosphatase 109 40-136 U/L Total Protein 7.1 6.4-8.2 GM/DL Albumin 4.4 3.2-4.5 GM/DL Lipase 45 8-78 U/L My Orders Orders - RICHARD GREENE Cbc With Automated Diff (10/01/21 14:30) Comprehensive Metabolic Panel (10/01/21 14:30) Lipase (10/01/21 14:30) Urinalysis (10/01/21 14:30) Iv/Invasive Line Insertion .IV start (10/01/21 14:30) Ketorolac Injection (Toradol Injection) (10/01/21 14:45) Ed Iv/Invasive Line Start (10/01/21 14:41) Fentanyl Inj (Sublimaze Injection) (10/01/21 14:42) Ct Abdomen/Pelvis W (10/01/21 14:53) Iohexol Injection (Omnipaque 350 Mg/Ml 1 (10/01/21 15:15) Ns (Ivpb) (Sodium Chloride 0.9% Ivpb Bag (10/01/21 15:15) Medications Given in ED Current Medications Medications Dose Ordered Sig/Tomasa Route Start Time Stop Time Status Last Admin Dose Admin Iohexol 100 ml ONCE ONCE IV 10/01/21 15:15 10/01/21 15:16 DC 10/01/21 15:16 99 ML Ketorolac Tromethamine 30 mg ONCE ONCE IVP 10/01/21 14:45 10/01/21 14:46 DC 10/01/21 14:51 30 MG Sodium Chloride 100 ml ONCE ONCE IV 10/01/21 15:15 10/01/21 15:16 DC 10/01/21 15:16 80 ML Vital Signs/I&O 10/01/21 13:39 Temp 37.1 Pulse 101 Resp 18 B/P (MAP) 148/89 (108) Pulse Ox 97 O2 Delivery Room Air Blood Pressure Mean: 108 Departure Communication (PCP) Patient presents to ED with right CVA, lower thoracic back pain. Rating pain to right lower quadrant and right upper quadrant. Denies any chest pain, shortness of breath or cough. She has been taken Ultram but states that medication makes her sick and sleepy. She has been on Flexeril a few times to help with muscle pain. Pain over the past 3 to half weeks. History of kidney stones. Sharp stabbing pain. History of cholecystectomy and appendectomy. On exam she does have point tenderness. She does have some right upper quadrant right lower quadrant tenderness. She has no thoracic or lumbar midline tenderness. Lung sounds clear bilateral. Patient lab work was otherwise unremarkable. Ur inalysis was negative for infection. Due to her continuous pain and location CT abdomen pelvis was ordered which was a negative for any acute abnormality. Was given Toradol and fentanyl with improvement of her pain. Discussed these results with patient. Discussed due to her location this may be more musculoskeletal potential thoracic radiculopathy type pain. She may benefit wi pain management at this time versus physical therapy. Discussed with patient options. Discussed anti-inflammatory to take as well as something different than the Ultram. We will provide hydrocodone to take as needed if pain becomes severe. Discussed with patient this may also cause her to be tired or sleepy. Recommend follow-up your PCP for further evaluation. Patient denies any fever, weight loss, bowel or urine incontinence, saddle paresthesia. Impression Primary Impression: Back pain Disposition: 01 HOME, SELF-CARE Condition: Stable Departure-Patient Inst. Decision time for Depature: 15:52 Referrals: KRISTEN PAREDES DO (PCP/Family) Primary Care Physician Patient Instructions: Back Muscle Strain (DC) Add. Discharge Instructions: Recommend following up with your primary care physician for further evaluation as needed All discharge instructions reviewed with patient and/or family. Voiced understanding. Scripts Hydrocodone/Acetaminophen (Hydrocodone-Acetamin 5-325 mg) 5 Mg-325 Mg Tablet 1 TAB PO Q4H PRN for PAIN-MODERATE (5-7), #8 TAB Prov: RICHARD GREENE 10/01/21 RICHARD GREENE Oct 01, 2021 14:42
[2021-10-01 14:43] LABS: BASOPHILS # (AUTO) 0.1 10^3/uL (0.0-0.1); BASOPHILS % (AUTO) 1 % (0-10); EOSINOPHILS # (AUTO) 0.1 10^3/uL (0.0-0.3); EOSINOPHILS % (AUTO) 2 % (0-10); HEMATOCRIT 42 % (35-52); HEMOGLOBIN 13.4 g/dL (11.5-16.0); LYMPHOCYTES # (AUTO) 2.1 10^3/uL (1.0-4.0); LYMPHOCYTES % (AUTO) 29 % (12-44); MEAN CORPUSCULAR HEMOGLOBIN 28 pg (25-34); MEAN CORPUSCULAR HGB CONC 32 g/dL (32-36); MEAN CORPUSCULAR VOLUME 88 fL (80-99); MEAN PLATELET VOLUME 9.5 fL (9.0-12.2); MONOCYTES # (AUTO) 0.5 10^3/uL (0.0-1.0); MONOCYTES % (AUTO) 7 % (0-12); NEUTROPHILS # (AUTO) 4.4 10^3/uL (1.8-7.8); NEUTROPHILS % (AUTO) 62 % (42-75); PLATELET COUNT 324 10^3/uL (130-400); WHITE BLOOD COUNT 7.1 10^3/uL (4.3-11.0)
[2021-10-01 14:44] LABS: BILIRUBIN,URINE NEGATIVE (NEGATIVE); CLARITY,URINE CLEAR; COLOR,URINE YELLOW; GLUCOSE, URINE (UA) NEGATIVE (NEGATIVE); KETONES,URINE NEGATIVE (NEGATIVE); LEUKOCYTE ESTERASE ,URINE NEGATIVE (NEGATIVE); NITRITE,URINE NEGATIVE (NEGATIVE); PROTEIN,URINE NEGATIVE (NEGATIVE)
[2021-10-01] MEDS ORDERED: KETOROLAC 30 MG/ML VIAL IVP ONE (14:45)
[2021-10-01 14:51] LABS: BACTERIA,URINE NEGATIVE /HPF
[2021-10-01 15:04] LABS: ALBUMIN 4.4 GM/DL (3.2-4.5); BILIRUBIN,TOTAL 0.8 MG/DL (0.1-1.0); CALCIUM 9.8 MG/DL (8.5-10.1); CREATININE SERUM 1.03 MG/DL (0.60-1.30); POTASSIUM 3.8 MMOL/L (3.6-5.0); TOTAL PROTEIN 7.1 GM/DL (6.4-8.2)
[2021-10-01] MEDS ORDERED: IOHEXOL 350 MG/ML 100 ML (OMNIPAQUE 350) VIAL IV ONE (15:15)
[2021-10-01] MEDS ORDERED: NS 100 ML (IVPB) BAG IV ONE (15:15)
--- NOTE | 2021-10-01 15:36 | Diagnostic Imaging Report ---
EXAMINATION: CT abdomen and pelvis with intravenous contrast. TECHNIQUE: Multiple contiguous axial images were obtained through the abdomen and pelvis after the uneventful administration of intravenous contrast. All CT scans use one or more of the following dose optimizing techniques: automated exposure control, MA and/or KvP adjustment based on patient size and exam type or iterative reconstruction. HISTORY: Right flank pain, RLQ abd pain COMPARISON: 06/02/2018. FINDINGS: Lung bases: Bibasilar dependent atelectasis. Solid organs: The liver is normal without focal lesion. The gallbladder is surgically absent. There is no biliary ductal dilation. Pancreas is normal. Spleen is normal. Adrenal glands are normal. The kidneys are normal without hydronephrosis. Bowel: The stomach and small bowel are normal without obstruction. The colon is unremarkable. The appendix is nonvisualized and there are surgical changes near the expected location of the appendix which could be seen with prior appendectomy. There are no secondary signs of acute appendicitis. Peritoneum: There is no intraperitoneal free fluid or free air. No suspicious lymphadenopathy. Vasculature: Normal without aneurysm. Musculoskeletal: Degenerative changes of the spine without suspicious osseous lesion or compression fracture. Pelvis: The uterus is surgically absent. No adnexal mass. The urinary bladder is normal. IMPRESSION: No acute abnormality in the abdomen or pelvis. Dictated by: Dictated on workstation # [id number]
[2021-10-01] MEDS ORDERED: ACHD5005 PO (15:52)
[2021-10-01 15:59] VITALS: BP 146/84
== END 2021-10-01 15:59 | disposition home or self-care (01) ==
LOC: EDUNIT# 13:23 → ER 13:25
DX: M54.6 Pain in thoracic spine (principal); R10.31 Right lower quadrant pain; R10.11 Right upper quadrant pain; G47.30 Sleep apnea, unspecified; Z99.89 Dependence on other enabling machines and devices; Z87.442 Personal history of urinary calculi; Z90.49 Acquired absence of other specified parts of digestive tract; Z90.710 Acquired absence of both cervix and uterus
CPT/HCPCS: 36415; 74177; 80053; 81000; 83690; 85025

== ENCOUNTER 2022-01-13 05:36 | Outpatient (CLI) | payer MEDICARE ==
[~2022-01-13] VITALS: Ht 167 cm; Wt 110.0 kg
[~2022-01-13 05:36] MED LIST changes: +ACHD5005 PO; -OLME20TA21 PO; +OLME20TA75 PO
== END 2022-01-13 14:52 ==
LOC: PREOP 05:36
PROVIDERS: ATTEND Surgery
DX: Z01.818 Encounter for other preprocedural examination (principal); E66.01 Morbid (severe) obesity due to excess calories

== ENCOUNTER 2022-01-21 10:22 | Day surgery (SDC) | payer MEDICARE ==
[2022-01-21] VITALS (13 sets, daily range): BP systolic 114–154; BP diastolic 58–82
[~2022-01-21] VITALS: Ht 167 cm; Wt 110.0 kg
[2022-01-21] MEDS ORDERED: ceFAZolin INJECTION 2,000 MG in NS (IVPB) 50 ML IV ONE (10:45)
[2022-01-21] MEDS ORDERED: BUP/EPI 0.25% 1:200,000 (MARCAINE) 30 ML VIAL ONE (10:59)
--- NOTE | 2022-01-21 10:59 | Progress Note-Pre Operative ---
Pre-Operative Progress Note Date H&P Reviewed: Jan 21, 2022 Time H&P Reviewed: 10:58 History & Physical: H&P Reviewed, Patient Examed, No changes noted Pre-Operative Diagnosis: Morbid obesity, SORAYA, GERD, hyperlipidema MARIAH HERNANDEZ APRN Jan 21, 2022 10:59
--- NOTE | 2022-01-21 11:02 | Discharge Inst-Surgical ---
D/C Lap Instructions-KIDO Reconcile Patient Problems Problems Reviewed?: Yes Follow Up Appt in 2 weeks Activity as tolerated No driving for 24 hours No driving while on pain medications Incentive Spirometry use every 2 hours while awake Clear liquid diet for 2 weeks No carbonated beverages, leafy greens, breads or crackers for 6 weeks. Symptoms to Report: Fever over 101 degree F, Nausea/Vomiting Infection Signs and Symptoms to report: Increased redness, Foul odor of wound, Increased drainage Bathing instructions: May shower Operative Area Clean/Dry; Keep incision clean/dry If any problems/questions: Contact your physician or go to Emergency Room MARIAH HERNANDEZ APRN Jan 21, 2022 11:02
[2022-01-21] MEDS ORDERED: ONDANSETRON 4 MG/2 ML (SDV) Z0FRAN IV ONE (11:45)
[2022-01-21] MEDS ORDERED: SCOPOLAMINE 1.5 MG (TRANSDERM-SCOP) PATCH TOP ONE (11:45)
[2022-01-21] MEDS ORDERED: FAMOTIDINE 20MG/2ML IV (PEPCID) IV ONE (11:45)
[2022-01-21] MEDS ORDERED: ONDANSETRON 4 MG/2 ML (SDV) Z0FRAN ONE ×3 (11:49→14:32)
[2022-01-21] MEDS ORDERED: SCOPOLAMINE 1.5 MG (TRANSDERM-SCOP) PATCH ONE (11:49)
[2022-01-21] MEDS ORDERED: FAMOTIDINE 20MG/2ML IV (PEPCID) ONE (11:49)
[2022-01-21] MEDS ORDERED: LACTATED RINGERS 1,000 ML IV PRN (12:00)
[2022-01-21] MEDS ORDERED: fentaNYL INJ 100 MCG/2 ML AMP ONE (12:23)
[2022-01-21] MEDS ORDERED: MIDAZOLAM 2 MG/2 ML (VERSED) VIAL ONE (12:23)
[2022-01-21] MEDS ORDERED: fentaNYL INJ 1,000 MCG in NS (IVPB) 80 ML IV PRN (12:45)
[2022-01-21] MEDS ORDERED: ONDANSETRON 4 MG/2 ML (SDV) Z0FRAN IV PRN (12:45)
[2022-01-21] MEDS ORDERED: NALOXONE 0.4 MG/ML 1 ML (NARCAN) VIAL IV PRN (12:45)
[2022-01-21] MEDS ORDERED: NS IV 1000 ML 1,000 ML IV SCH (12:45)
[2022-01-21] MEDS ORDERED: diphenhydrAMINE 50 MG/ML INJ (BENADRYL) IV PRN (12:45)
[2022-01-21] MEDS ORDERED: diphenhydrAMINE 50 MG/ML INJ (BENADRYL) IVP PRN (12:45)
[2022-01-21] MEDS ORDERED: RT-ALBUTEROL SULF 2.5 MG/3 ML PRE-MIX VIAL INH SCH ×2 (12:45→22:45)
[2022-01-21] MEDS ORDERED: METOCLOPRAMIDE INJ 10 MG/2 ML (REGLAN) IV PRN (12:45)
[2022-01-21] MEDS ORDERED: GLYCOPYRROLATE 0.2 MG/ML (ROBINUL) 2 ML VIAL ONE (14:03)
[2022-01-21] MEDS ORDERED: NEOSTIGMINE (BLOXIVERZ ) 1 MG/1ML 10 ML VIAL ONE (14:03)
[2022-01-21] MEDS ORDERED: proPOfol 200 MG/20 ML (DIPRIVAN) VIAL IV ONE (14:04)
[2022-01-21] MEDS ORDERED: HYDROmorphone 2 MG/ML VIAL (DILAUDID) ONE (14:07)
--- NOTE | 2022-01-21 14:07 | Progress Note-Post Operative ---
Post-Operative Progess Note Surgeon (s)/Imaging Specialist (s) Surgeon TANISHA MEDINA MD Imaging Specialist: mervat perez DOCUMENTATION WRITER Pre-Operative Diagnosis Morbid obesity, SORAYA, GERD, hyperlipidema Post-Operative Diagnosis same Procedure & Operative Findings Date of Procedure 01/21/22 Procedure Performed/Findings laparoscopic gastric sleeve resection. Anesthesia Type get Estimated Blood Loss Estimated blood loss (mL): minimal Specimens/Packing Specimens Removed stomach TANISHA MEDINA MD Jan 21, 2022 14:07
[2022-01-21] MEDS ORDERED: SEVOFLURANE (ULTANE) 15 ML INHAL SOLN ONE (14:14)
--- NOTE | 2022-01-21 14:27 | Anesthesia-General Post-Op ---
General Patient Condition Mental Status/LOC: Same as Preop Cardiovascular: Satisfactory Nausea/Vomiting: Absent Respiratory: Satisfactory Pain: Controlled Complications: Absent Post Op Complications Complications None Follow Up Care/Instructions Patient Instructions None needed. Anesthesia/Patient Condition Patient Condition Patient is doing well, no complaints, stable vital signs, no apparent adverse anesthesia problems. No complications reported per nursing. DAVE OROSCO CRNA Jan 21, 2022 14:27
[2022-01-21] MEDS ORDERED: ONDANSETRON 4 MG/2 ML (SDV) Z0FRAN IVP PRN (14:30)
[2022-01-21] MEDS ORDERED: fentaNYL INJ 100 MCG/2 ML AMP IVP ONE (14:30)
[2022-01-21] MEDS ORDERED: PROMETHAZINE INJ 25 MG/ML (PHENERGAN) AMP IVP ONE (14:45)
[2022-01-21] MEDS ORDERED: PROMETHAZINE INJ 25 MG/ML (PHENERGAN) AMP ONE (14:48)
[2022-01-21] MEDS: 1/2 NS W/KCL 20 MEQ/L 1,000 ML IV SCH ×2 (16:43→16:55)
[2022-01-21] MEDS: ONDANSETRON 4 MG/2 ML (SDV) Z0FRAN IVP SCH ×2 (18:06→23:21)
[2022-01-21] MEDS: metroNIDAZOLE 500MG/100ML IVPB 100 ML IV SCH ×2 (18:06→23:22)
[2022-01-21] MEDS: METOCLOPRAMIDE INJ 10 MG/2 ML (REGLAN) IVP SCH ×2 (18:06→23:21)
[2022-01-21] MEDS ORDERED: RT-ALBUTEROL SULF 2.5 MG/3 ML PRE-MIX VIAL INH PRN (19:10)
[2022-01-21] MEDS: ENOXAPARIN INJECTION 30 MG/0.3 ML SYR SC SCH (20:15)
[2022-01-21] MEDS: ceFAZolin INJECTION 2,000 MG in NS (IVPB) 50 ML IV SCH (20:16)
[2022-01-21] MEDS ORDERED: LORazepam INJ 2 MG/ML (ATIVAN) VIAL IVP PRN (20:45)
[2022-01-21] MEDS ORDERED: fentaNYL INJ 100 MCG/2 ML AMP IVP PRN (20:45)
[2022-01-21] MEDS ORDERED: PANTOPRAZOLE 40 MG (PROTONIX) VIAL ONE (21:04)
[2022-01-21] MEDS: PANTOPRAZOLE 40 MG (PROTONIX) VIAL IV SCH (21:15)
[2022-01-21] MEDS ORDERED: LORazepam INJ 2 MG/ML (ATIVAN) VIAL ONE (21:27)
[2022-01-22] MEDS: 1/2 NS W/KCL 20 MEQ/L 1,000 ML IV SCH ×2 (00:52→09:43)
[2022-01-22] MEDS ORDERED: RT-ALBUTEROL SULF 2.5 MG/3 ML PRE-MIX VIAL INH PRN (02:15)
--- NOTE | 2022-01-22 02:52 | OPERATIVE REPORT ---
DATE OF SERVICE: 01/21/2022 ATTENDING PRIMARY CARE PHYSICIAN: Nan Buchanan DO PREOPERATIVE DIAGNOSES: Morbid obesity, diabetes, sleep apnea. POSTOPERATIVE DIAGNOSES: Morbid obesity, diabetes, sleep apnea. PROCEDURE: Laparoscopic gastric sleeve resection. SURGEON: Tanisha Medina MD ANESTHESIA: Monitored anesthesia care. ESTIMATED BLOOD LOSS: Minimal. FINDINGS: No hiatal hernia. DISPOSITION: The patient tolerated the procedure well. INDICATIONS: The patient is a 61-year-old female who is in a surgical weight loss program for the gastric sleeve resection and meets the medical criteria for weight loss surgery. She states that she gained the majority of her adult weight at around age 42 after having children and has tried a number of diet and exercise attempts with no success. She has tried diet programs including low carbohydrate, low-calorie diets as well as Weight Watchers with no success. She has also tried a number of exercise regimens including walking, stationary bike, resistance weight training, again with no success. She also has tried different pharmaceutical medications again with no success. Her medical comorbidities related to her obesity include hypertension, sleep apnea, and diabetes. DESCRIPTION OF PROCEDURE: The patient was brought to the operating room, laid supine on the table. After adequate IV pain and sedative medications and general endotracheal intubation, the abdomen was prepped and draped in standard surgical fashion. A 0.5% Marcaine with epinephrine was used to anesthetize the overlying skin in the left upper abdominal quadrant and a transverse skin incision was made using a 15 blade. An 0 silk suture was applied to the medial aspect of the incision for retraction and a Veress needle inserted with a low opening pressure of 0 mmHg. The abdomen was then insufflated to 15 mmHg pressure. The Veress needle removed and a 5 mm XL trocar placed followed by 5 mm 45-degree angle laparoscope and visualized the peritoneal cavity. A 4-quadrant abdominal exploration was performed. There was mild hepatomegaly. There were omental adhesions towards the abdominal wall from a previous Deedee incision. Under direct visualization, we then proceeded to place a mid abdominal, left of midline 10 mm port after the skin and peritoneal lining were anesthetized using 0.5% Marcaine with epinephrine and a transverse skin incision was made using a 15 blade. In a similar manner, a mid abdominal, right of midline 15 mm port was placed. In a similar manner, a right upper abdominal quadrant 5 mm port was placed. The epigastric region was then anesthetized and a transverse skin incision was made using 11 blade. A tract was then created through the abdominal wall layers using a trocar to a 5 mm port and through this opening, a medium sized Dyan liver retractor was placed and the left lobe of the liver retracted anteriorly and superiorly. The patient was then placed in a steep reverse Trendelenburg position and we then measured by approximately 6 cm from the pylorus along the greater curvature and marked this area with a marking pen. The gastrocolic ligament was opened next to the stomach using the Sonicision entering the lesser sac. We then proceeded with inferior dissection until we were approximately 2 cm below our marking. We then proceeded cephalad taking the short gastric vessels as well as the angle of His, connective tissue fibers and identifying the left rodrigue of the diaphragm with visualization with good hemostasis. A 36-Ukrainian ViSiGi was then placed in the stomach and directed into the pylorus. Using this as our staple line guide, we first proceeded with a ARPIT 45 mm black load staple approximately 2 cm below our marking. We then proceeded with two 60 mm black loads followed by two 60 mm purple loads leaving 2 cm next to the gastroesophageal junction and completing our gastric sleeve resection. Good hemostasis was observed. A leak test was then performed to 35 mmHg with no leak identified. The ViSiGi was then placed to suction and then removed. The staple line corners were then clipped with 5 mm clips and fibrin glue was then placed on to the staple line and the omentum placed onto the staple line. The stomach was then removed through the 15 mm port site. The fascia and peritoneum at the 10 and 15 mm port site were then closed under direct visualization using a Ra-Blanche device and an 0 Vicryl suture. The abdomen was then desufflated and the remaining ports were removed. All skin incisions were closed using 4-0 Monocryl running subcuticular sutures. Wounds were then cleaned and covered with Dermabond. The patient tolerated the procedure well. We will proceed with DVT prophylaxis with early ambulation calf SCDs as well as Lovenox injections. She may have ice chips today and then tomorrow morning, we will start her on 30 mL of clear liquids every 30 minutes and then double this and once she is able to tolerate 60 mL of clear liquids every half hour, has good pain control with oral pain medication and is ambulating well, we will discharge her home where she will be instructed to follow a phase 1 clear liquid diet for the next 2 weeks. Job ID: [id number] DocumentID: [id number] Dictated Date: 01/21/2022 14:33:11 Conveyor System Operator Date: 01/22/2022 02:49:00 Dictated By: TANISHA MEDINA MD MTDD
[2022-01-22] MEDS: ceFAZolin INJECTION 2,000 MG in NS (IVPB) 50 ML IV SCH ×2 (03:57→11:40)
[2022-01-22 04:05] VITALS: BP 122/61
[2022-01-22] MEDS: METOCLOPRAMIDE INJ 10 MG/2 ML (REGLAN) IVP SCH ×2 (05:31→11:40)
[2022-01-22] MEDS: ONDANSETRON 4 MG/2 ML (SDV) Z0FRAN IVP SCH ×2 (05:31→11:40)
[2022-01-22 05:51] LABS: HEMATOCRIT 35 % (35-52); HEMOGLOBIN 11.2 g/dL (11.5-16.0); MEAN CORPUSCULAR HEMOGLOBIN 29 pg (25-34); MEAN CORPUSCULAR HGB CONC 33 g/dL (32-36); MEAN CORPUSCULAR VOLUME 88 fL (80-99); MEAN PLATELET VOLUME 10.7 fL (9.0-12.2); PLATELET COUNT 225 10^3/uL (130-400); WHITE BLOOD COUNT 5.2 10^3/uL (4.3-11.0)
[2022-01-22 06:09] LABS: POTASSIUM 4.1 MMOL/L (3.6-5.0)
[2022-01-22 06:10] LABS: CALCIUM 8.7 MG/DL (8.5-10.1)
[2022-01-22 06:14] LABS: CREATININE SERUM 0.84 MG/DL (0.60-1.30)
[2022-01-22] MEDS: RT-ALBUTEROL SULF 2.5 MG/3 ML PRE-MIX VIAL INH SCH ×2 (07:53→11:28)
[2022-01-22 08:05] VITALS: BP 121/56
[2022-01-22] MEDS: PANTOPRAZOLE 40 MG (PROTONIX) VIAL IV SCH (08:48)
[2022-01-22] MEDS: metroNIDAZOLE 500MG/100ML IVPB 100 ML IV SCH (08:48)
[2022-01-22] MEDS: ENOXAPARIN INJECTION 30 MG/0.3 ML SYR SC SCH (08:49)
[2022-01-22] MEDS ORDERED: SENNA W/DOCUSATE (SENOKOT S) TABLET PO SCH (09:00)
[2022-01-22] MEDS ORDERED: PANTOPRAZOLE 40 MG (PROTONIX) TAB PO SCH (09:00)
[2022-01-22] MEDS ORDERED: ONDANSETRON 4 MG/2 ML (SDV) Z0FRAN IVP PRN (12:45)
[2022-01-22] MEDS ORDERED: METOCLOPRAMIDE INJ 10 MG/2 ML (REGLAN) IVP PRN (12:45)
[2022-01-22 12:50] VITALS: BP 141/63
--- NOTE | 2022-01-22 13:25 | Progress Note ---
Subjective Date Seen by a Provider: Jan 22, 2022 Time Seen by a Provider: 13:05 Subjective/Events-last exam Patient reports doing well. Denies any N/V. Ambulating. Tolerating clear liquids thus far. Reports some abdominal pain but manageable. Objective Exam Vital Signs Date Time Temp Pulse Resp B/P (MAP) Pulse Ox O2 Delivery O2 Flow Rate FiO2 01/22/22 12:50 36.5 52 19 141/63 (89) 94 Room Air 01/22/22 11:28 95 NIV CPAP 01/22/22 08:05 36.6 60 19 121/56 (77) 91 Room Air 01/22/22 08:00 91 Room Air 01/22/22 07:53 95 NIV CPAP 01/22/22 06:42 20 01/22/22 04:05 36.5 58 20 122/61 (81) 96 NIV CPAP 01/21/22 23:27 36.5 84 18 121/68 (85) 98 NIV CPAP 01/21/22 20:05 95 Nasal Cannula 3.00 01/21/22 19:20 36.9 69 19 114/58 (76) 97 Nasal Cannula 3.00 01/21/22 17:30 36.8 88 22 134/58 (83) 94 Nasal Cannula 3.00 01/21/22 16:27 36.5 79 19 132/72 (92) 93 Nasal Cannula 3.00 01/21/22 15:52 96 Nasal Cannula 3.00 01/21/22 15:20 36.6 74 18 149/74 (99) 93 Nasal Cannula 3.00 01/21/22 15:15 36.7 18 154/76 (102) 96 Nasal Cannula 3.00 01/21/22 15:15 Nasal Cannula 3.00 01/21/22 15:10 18 151/77 (101) 96 Nasal Cannula 3.00 01/21/22 15:06 Nasal Cannula 3.00 01/21/22 15:02 Nasal Cannula 3.00 01/21/22 15:00 18 150/78 (102) 93 Nasal Cannula 2.00 01/21/22 14:57 OxyMask 2.00 01/21/22 14:53 OxyMask 4.00 01/21/22 14:50 18 148/80 (102) 95 OxyMask 4.00 01/21/22 14:43 OxyMask 6.00 01/21/22 14:40 18 144/75 (98) 96 OxyMask 6.00 01/21/22 14:35 OxyMask 6.00 01/21/22 14:32 OxyMask 6.00 01/21/22 14:30 18 150/82 (104) 98 OxyMask 6.00 01/21/22 14:22 OxyMask 6.00 01/21/22 14:22 36.6 16 144/81 (102) 96 OxyMask 6.00 I & O 01/22/22 07:00 Intake Total 1250 ml Output Total 725 ml Balance 525 ml Capillary Refill : General Appearance: No Apparent Distress, WD/WN Neck: Normal Inspection, Supple Respiratory: No Accessory Muscle Use, No Respiratory Distress Cardiovascular: Regular Rate, Rhythm, No Edema Gastrointestinal: normal bowel sounds, soft, tenderness Extremity: Normal Inspection, Normal Range of Motion Neurologic/Psychiatric: Alert, Oriented x3 Skin: Normal Color, Warm/Dry Results Lab Laboratory Tests 01/22/22 05:41: White Blood Count 5.2, Red Blood Count 3.93, Hemoglobin 11.2L, Hematocrit 35, Mean Corpuscular Volume 88, Mean Corpuscular Hemoglobin 29, Mean Corpuscular Hemoglobin Concent 33, Red Cell Distribution Width 15.5H, Platelet Count 225, Mean Platelet Volume 10.7, Sodium Level 142, Potassium Level 4.1, Chloride Level 111H, Carbon Dioxide Level 19L, Anion Gap 12, Blood Urea Nitrogen 16, Creatinine 0.84, Estimat Glomerular Filtration Rate 80, BUN/Creatinine Ratio 19, Glucose Level 123H, Calcium Level 8.7 Microbiology 01/21/22 MRSA Screen - Final, Complete MRSA not isolated Assessment/Plan Assessment/Plan Assess & Plan/Chief Complaint A 61 year old female with morbid obesity, DM II, SORAYA, GERD, hyperlipidema who is S/P lap gastric sleeve VSS Patient ambulating Nausea and pain controlled. Tolerating clear liquid diet. 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
[2022-01-22] MEDS ORDERED: HYDROcodone/APAP 7.5MG-325 MG/15 ML (LORTAB) UDC PO PRN (13:30)
[2022-01-22 14:40] VITALS: BP 141/63
== END 2022-01-22 15:00 | disposition home or self-care (01) ==
LOC: SDC 10:22 → 4TH 15:15 → SDC 01-22 15:00
PROVIDERS: ATTEND Surgery
DX: E66.01 Morbid (severe) obesity due to excess calories (principal); E11.9 Type 2 diabetes mellitus without complications; G47.33 Obstructive sleep apnea (adult) (pediatric); E78.5 Hyperlipidemia, unspecified; K21.9 Gastro-esophageal reflux disease without esophagitis; Z79.4 Long term (current) use of insulin; Z68.39 Body mass index [BMI] 39.0-39.9, adult; Z79.899 Other long term (current) drug therapy
CPT/HCPCS: 36415; 80048; 82947; 85027; 87081; 94640; 94664; 94760